=== PATIENT | female | born 1970 | race Caucasian/White ===

== ENCOUNTER 2019-10-30 18:45 | Emergency (ER) | payer OTHER, SELFPAY ==
[2019-10-30 19:19] VITALS: BP 136/75; PULSE 93; RESP 18; TEMP 36.9; O2SAT 98; BMI 28.7
--- NOTE | 2019-10-30 19:30 | W.ED.ABDPA2 ---
HPI - Abdominal Pain General: Chief Complaint: Abdominal Pain Stated Complaint: lower back and abd pain Time Seen by Provider: 10/30/19 19:30 History of Present Illness: HPI narrative: 49-year-old female with mainly right-sided back and flank pain for the past couple of days. She notes that she started some new medications recently, and has not had regular stools in a while. No fever. She has vomited twice though. Multiple belly surgeries. MD elicited complaint: abdominal pain and flank pain Pertinent past history: constipation Onset (ago): day(s) Pain Consistency: constant Location: RUQ and R flank Severity: moderate Quality: aching and fullness Radiation: back Migration to: no migration Exacerbating factors: movement Relieving factors: nothing Associated Symptoms: Denies fever(s), hematochezia, hematuria, hematemesis and melena Review of Systems Const: Denies: fever(s) Eyes: Denies: change in vision or blurry vision ENMT: Denies: swelling of lips/tongue or post nasal drip Card: Denies: chest pain, palpitations, irregular heart rhythm or edema Resp: Denies: dyspnea, productive cough, non-productive cough or wheezing GI: Denies: hematemesis, hematochezia or melena : Denies: hematuria Musc: Reports: back pain; Denies: neck pain, joint redness or joint warmth Skin/Breast: Denies: rash, pruritus or erythema Neuro: Denies: headache(s), dizziness or seizure-like activity Psych: Denies: anxiety PFSH ED PFSH: Social History Smoking and tobacco status: current every day smoker Physical Exam Const: GENERAL APPEARANCE: well developed ORIENTATION/CONSCIOUSNESS: Yes oriented to person, Yes oriented to place and Yes oriented to time HENMT: COMMON NORMALS: normocephalic, external ears normal and Normal external nose present HEAD & SCALP: normocephalic; no scalp tenderness NOSE: Normal external nose present and No nasal discharge present EXTERNAL EAR: Yes external ears normal THROAT: posterior oropharynx normal; no peritonsillar mass Eye: COMMON NORMALS: Equal, round and reactive pupils present, EOMs intact bilaterally and conjunctivae normal EYELID: eyelids normal CONJUNCTIVA: Yes conjunctivae normal PUPIL: Yes Equal, round and reactive pupils present Neck/C-Spine: GENERAL: No tracheal deviation Chest: COMMONS NORMALS: normal inspection of the chest CHEST: No tenderness Resp: COMMON NORMALS: clear to auscultation bilaterally EFFORT & INSPECTION: No tachypneic, No respiratory distress, No retractions, No uses accessory muscles and No tracheal deviation AUSCULTATION: clear to auscultation bilaterally, no rhonchi, no wheezes and lung sounds not diminished Cardio: COMMON NORMALS: regular rate and regular rhythm RATE: regular rate RHYTHM: regular rhythm HEART SOUNDS: no murmurs PERIPHERAL PULSES: radial pulses present GI: INSPECTION: Yes abdominal distension AUSCULTATION: No Hyperactive bowel sounds present and No Hypoactive bowel sounds present PALPATION: Yes Guarding due to palpation present (GI) and No Rigid due to palpation PERCUSSION: no dullness to percussion and no tympanic to percussion : COMMON NORMALS: No no CVA tenderness BLADDER/KIDNEY EXAM: No no CVA tenderness Back/Pelvis: COMMON NORMALS: negative for no CVA tenderness Neuro: SENSORIUM/ORIENTATION: Yes oriented to person, Yes oriented to place and Yes oriented to time Psych: COMMON NORMALS: mental status grossly normal Skin: COMMON NORMALS: no rashes or lesions noted GENERAL SKIN EXAM: no rashes or lesions noted Course Vital Signs: Vital signs: Vital Signs Temperature 98.5 F 10/30/19 19:19 Pulse Rate 82 10/30/19 21:28 Respiratory Rate 16 10/30/19 21:28 Blood Pressure 124/87 10/30/19 21:28 Pulse Oximetry 98 10/30/19 21:28 MDM - Abdominal Pain Lab Data: Attestation: I reviewed the patient's lab results. Lab results narrative: Labs negative. CT shows constipation. Labs: Lab Results 10/30/19 10/30/19 10/30/19 Range/Units 19:47 19:47 20:36 WBC 8.3 (4.0-10.0) 10^3/ uL RBC 4.28 (4.1-5.3) 10^6/u L Hgb 13.7 (11.5-15.3) g/dL Hct 40.5 (37.0-47.0) % MCV 94.6 (81-99) fL MCH 32.0 (28.0-34.0) pg MCHC 33.8 (30.0-36.0) g/dL RDW 12.9 (12.1-15.1) % Plt Count 223 (130-400) 10^3/c mm MPV 10.1 (7.4-10.4) fL Neut % (Auto) 56.4 % Lymph % (Auto) 34.4 % [place] % (Auto) 5.6 % Eos % (Auto) 2.7 % Baso % (Auto) 0.7 % Neut # (Auto) 4.7 (1.8-7.7) 10^3/u L Lymph # (Auto) 2.9 (0.8-4.8) 10^3/u L [place] # (Auto) 0.5 (0.2-0.9) 10^3/u L Eos # (Auto) 0.2 (0.0-0.8) 10^3/u L Baso # (Auto) 0.1 (0.0-0.1) 10^3/u L Nucleated RBC % (a uto) 0 % Nucleated RBCs # 0.0 /100WBC Sodium 140 (136-145) mmol/L Potassium 3.9 (3.5-5.1) mmol/L Chloride 103 (98-107) mmol/L Carbon Dioxide 25 (22-29) mmol/L Anion Gap 15.9 (5-19) BUN 13 (6-20) mg/dL Creatinine 0.6 (0.5-0.9) mg/dL GFR Calculation 107.2 (90-130) mL/min Glucose 101 (65-115) mg/dL Calculated Osmolal ity 286 (285-295) mOsm/k g Calcium 9.9 (8.5-10.5) mg/dL Total Bilirubin 0.2 (0.15-1.2) mg/dL AST 18 (0-32) U/L ALT 17 (0-33) U/L Alkaline Phosphata se 85 (35-105) IU/L C-Reactive Protein 3.4 (0.0-4.9) mg/L Total Protein 7.0 (6.6-8.7) g/dL Albumin 4.3 (3.5-5.2) g/dL Globulin 2.7 (1.3-4.6) g/dL Lipase 27 (13-60) U/L Urine Color Yellow (Yellow) Urine Appearance Sl hazy (CLEAR) Urine pH 5 (5-7) Ur Specific Gravit y 1.020 (1.005-1.030) Urine Protein Neg (Negative) Urine Glucose (UA) Norm (Normal) Urine Ketones Negative (Negative) Urine Blood Neg (Negative) Urine Nitrate Negative (Negative) Urine Bilirubin 1+ H (NEGATIVE) Urine Urobilinogen 1 H (Negative) mg/dL Ur Leukocyte Melvina ase Negative (Negative) Urine RBC Rare (0-2) /hpf Urine WBC 5-10 H (0-5) /hpf Ur Squamous Epith Cells 5-10 H (0-5) Urine Bacteria Trace (NONE) Urine Mucus 2+ Discharge Plan Discharge Patient Disposition: Home, Self-Care Clinical Impression: Constipation Qualifiers: Constipation type: unspecified constipation type Qualified Code(s): K59.00 - Constipation, unspecified Condition: Stable Prescriptions: No Action lorazepam 1 mg tablet RF: 0 Wellbutrin XL RF: 0 Discharge Orders: Discharge Order (Routine); Ordered 10/30/19 Ordered By: Cyril Fang Discharge Diet: Advance as tolerated Discharge Activity: Resume usual activity Patient Instructions: Constipation (ED) Discharge Date/Time: 10/30/19 21:33 Coding Level of Care Code ED Software Team Leader for Chg Fwd Exam Comprehensive
--- NOTE | 2019-10-30 19:43 | CTR_ITS ---
PROCEDURE INFORMATION: Exam: CT Abdomen And Pelvis With Contrast Exam date and time: 10/30/2019 7:56 PM Age: 49 years old Clinical indication: Abdominal pain; Flank; Lower; Prior surgery; Surgery date: 6+ months; Surgery type: [place]; Patient HX: C/O constipation and back pain r>l x 1 week; Additional info: R abd pain TECHNIQUE: Imaging protocol: Computed tomography of the abdomen and pelvis with intravenous contrast. Radiation optimization: All CT scans at this facility use at least one of these dose optimization techniques: automated exposure control; mA and/or kV adjustment per patient size (includes targeted exams where dose is matched to clinical indication); or iterative reconstruction. Contrast material: OMNI 300; Contrast volume: 95 ml; Contrast route: 20G COMPARISON: No relevant prior studies available. FINDINGS: Liver, spleen, pancreas, kidneys, and adrenal glands appear unremarkable. Urinary bladder is nearly collapsed. Appendix appears grossly unremarkable. Bowel loops do not appear significantly dilated. A moderate amount of stool is demonstrated. No large amount of free fluid demonstrated. Abdominal aorta does not appear dilated. Visualized lung bases demonstrate no significant opacification. CT/CT abdomen pelvis w con* [id number] IMPRESSION: No acute process is demonstrated. A moderate amount of stool is demonstrated. Total DLP: 698.39 mGy-cm Radiation Dose CTDIVOL = (mGy): DLP = 698.39 (mGy-cm)
[2019-10-30 19:56] LABS: Basophils # 0.1 10^3/uL (0.0-0.1); Basophils % 0.7 %; Eosinophils # 0.2 10^3/uL (0.0-0.8); Eosinophils % 2.7 %; Hematocrit 40.5 % (37.0-47.0); Hemoglobin 13.7 g/dL (11.5-15.3); Lymphocytes # 2.9 10^3/uL (0.8-4.8); Lymphocytes % 34.4 %; Mean Corpuscular HGB Conc 33.8 g/dL (30.0-36.0); Mean Corpuscular Volume 94.6 fL (81-99); Mean Platelet Volume 10.1 fL (7.4-10.4); Monocytes # 0.5 10^3/uL (0.2-0.9); Monocytes % 5.6 %; Neutrophils # 4.7 10^3/uL (1.8-7.7); Neutrophils % 56.4 %; Nucleated Red Blood Cells % 0 %; Platelet Count 223 10^3/cmm (130-400); Red Blood Count 4.28 10^6/uL (4.1-5.3); Red Cell Distribution Width 12.9 % (12.1-15.1); White Blood Count 8.3 10^3/uL (4.0-10.0)
[2019-10-30 20:14] VITALS: RESP 14; O2SAT 98
[2019-10-30 20:14] LABS: Alanine Aminotransferase 17 U/L (0-33); Albumin Level 4.3 g/dL (3.5-5.2); Alkaline Phosphatase 85 IU/L (35-105); Anion Gap 15.9 (5-19); Aspartate Amino Transferase 18 U/L (0-32); Blood Urea Nitrogen 13 mg/dL (6-20); C Reactive Protein 3.4 mg/L (0.0-4.9); Calcium 9.9 mg/dL (8.5-10.5); Carbon Dioxide 25 mmol/L (22-29); Chloride 103 mmol/L (98-107); Globulin 2.7 g/dL (1.3-4.6); Glomerular Filtration Rate 107.2 mL/min (90-130); Glucose 101 mg/dL (65-115); Lipase 27 U/L (13-60); Osmolality Calculated 286 mOsm/kg (285-295); Potassium 3.9 mmol/L (3.5-5.1); Sodium 140 mmol/L (136-145); Total Bilirubin 0.2 mg/dL (0.15-1.2)
[2019-10-30] MEDS: ketorolac 30 mg/mL INJ IVP (20:14)
[2019-10-30] MEDS: ondansetron 2 mg/ML SDV 2 mL 4 MG IVP (20:14)
[2019-10-30] MEDS: morphine 4 mg/mL SDV 1 mL IVP ×2 (20:14→21:13)
[2019-10-30] MEDS: sodium chloride 0.9% 1,000 ML 999 ML IV (20:20)
[2019-10-30 20:22] VITALS: BP 124/80; PULSE 107; RESP 16; O2SAT 98
--- NOTE | 2019-10-30 20:37 | PC.NURSE ---
patient to CT
[2019-10-30] MEDS: iohexol 300 mg/mL 100 mL Btl IV (20:39)
[2019-10-30 20:58] LABS: Urine Color Yellow (Yellow)
[2019-10-30 20:59] LABS: Add Urine Microscopic? YES; Bilirubin Urine 1+ (NEGATIVE); Blood Urine Neg (Negative); Glucose Urine UA Norm (Normal); Ketones Urine Negative (Negative); Leukocyte Esterase Urine Negative (Negative); Nitrate Urine Negative (Negative); Protein Urine Neg (Negative); Urine Appearance SL Hazy (CLEAR); Urobilinogen Urine 1 mg/dL (Negative); pH Urine 5 (5-7)
[2019-10-30 21:02] LABS: RBC Urine RARE /hpf (0-2)
[2019-10-30 21:03] LABS: Add Urine Culture? No; Bacteria Urine TRACE; Mucus Urine 2+
[2019-10-30 21:13] VITALS: RESP 15; O2SAT 9
[2019-10-30 21:14] VITALS: BP 133/86; PULSE 86; RESP 15; O2SAT 99
[2019-10-30 21:28] VITALS: BP 124/87; PULSE 82; RESP 16; O2SAT 98
[2019-10-30] MEDS: magnesium citrate Btl 296 mL PO (21:31)
== END 2019-10-30 21:33 | disposition home or self-care (01) ==
PROVIDERS: Emergency Provider Emergency Medicine
DX: K59.00 Constipation, unspecified (principal); F17.210 Nicotine dependence, cigarettes, uncomplicated
CPT/HCPCS: 12345; 74177; 80053; 81001; 83690; 85025; 86140; 96361; 96374; 96375; 96376; 99283; A9270; J1885; J2270; J2405; J7030; Q9967

== ENCOUNTER 2020-07-02 13:46 | Emergency (ER) | payer MEDICAID, SELFPAY ==
[2020-07-02 13:57] VITALS: BP 146/88; PULSE 79; RESP 14; TEMP 36.8; O2SAT 98; BMI 29.2
--- NOTE | 2020-07-02 14:21 | CTR_ITS ---
PROCEDURE INFORMATION: Exam: CT Abdomen And Pelvis With Contrast Exam date and time: 07/02/2020 2:28 PM Age: 50 years old Clinical indication: Abdominal pain; Prior surgery; Surgery date: 6+ months; Surgery type: Hyst; Patient HX: C/O epigastric pain and nausea TECHNIQUE: Imaging protocol: Computed tomography of the abdomen and pelvis with intravenous contrast. Radiation optimization: All CT scans at this facility use at least one of these dose optimization techniques: automated exposure control; mA and/or kV adjustment per patient size (includes targeted exams where dose is matched to clinical indication); or iterative reconstruction. Contrast material: OMNI 300; Contrast volume: 95 ml; Contrast route: INTRAVENOUS (IV); COMPARISON: CT abdomen pelvis w con* [id number] 10/30/2019 8:29 PM RADIATION DOSE METRICS: Total DLP (mGy-cm): 634.54 FINDINGS: Liver: Normal. No mass. Gallbladder and bile ducts: Normal. No calcified stones. No ductal dilation. Pancreas: Normal. No ductal dilation. Spleen: Small incidental splenule. Adrenal glands: Normal. No mass. Kidneys and ureters: Normal. No hydronephrosis. Stomach and bowel: Unremarkable. No obstruction. No mucosal thickening. Appendix: A normal appendix is identified. Intraperitoneal space: Unremarkable. No free air. No significant fluid collection. Vasculature: Unremarkable. No abdominal aortic aneurysm. Lymph nodes: Unremarkable. No enlarged lymph nodes. Urinary bladder: Unremarkable as visualized. Reproductive: The uterus is not visualized, consistent with hysterectomy. Bones/joints: Unremarkable. No acute fracture. Soft tissues: Unremarkable. Other findings: There is mucosal thickening at the gastroesophageal junction. CT/CT abdomen pelvis w con* [id number] IMPRESSION: There is mucosal thickening at the gastroesophageal junction consistent with nonspecific esophagitis/gastritis. Follow-up to exclude neoplasm if clinically warranted. Radiation Dose CTDIVOL = (mGy): DLP = 634.54 (mGy-cm)
[2020-07-02 14:27] VITALS: RESP 18
[2020-07-02 14:32] LABS: Add Urine Microscopic? NO
[2020-07-02] MEDS: ondansetron 2 mg/ML SDV 2 mL 4 MG IVP (14:33)
[2020-07-02] MEDS: lidocaine 2% viscous 15 ML, aluminum-mag hydrox-simethicon 30 ML, sucralfate oral liq 1 GM PO (14:33)
[2020-07-02 14:43] LABS: Basophils % 0.6 %; Eosinophils # 0.1 10^3/uL (0.0-0.8); Eosinophils % 1.5 %; Hematocrit 44.2 % (37.0-47.0); Hemoglobin 15.2 g/dL (11.5-15.3); Lymphocytes # 2.7 10^3/uL (0.8-4.8); Lymphocytes % 39.7 %; Mean Corpuscular HGB Conc 34.4 g/dL (30.0-36.0); Mean Corpuscular Hemoglobin 32.5 pg (28.0-34.0); Mean Corpuscular Volume 94.4 fL (81-99); Mean Platelet Volume 10.4 fL (7.4-10.4); Monocytes # 0.3 10^3/uL (0.2-0.9); Monocytes % 5.1 %; Neutrophils # 3.56 10^3/uL (1.8-7.7); Nucleated Red Blood Cells % 0 %; Platelet Count 271 10^3/cmm (130-400); Red Blood Count 4.68 10^6/uL (4.1-5.3); Red Cell Distribution Width 12.5 % (12.1-15.1); White Blood Count 6.7 10^3/uL (4.0-10.0)
[2020-07-02 14:47] LABS: Bilirubin Urine Neg (Negative); Blood Urine Neg (Negative); Glucose Urine UA Norm (Normal); Ketones Urine Negative (Negative); Leukocyte Esterase Urine Negative (Negative); Nitrate Urine Negative (Negative); Protein Urine Neg (Negative); Urine Appearance Clear (CLEAR); Urine Color Straw (Yellow); Urobilinogen Urine Norm (Negative); pH Urine 7 (5-7)
[2020-07-02 14:48] LABS: HCG Qualitative Urine. Negative (Negative)
[2020-07-02] MEDS: iohexol 300 mg/mL 100 mL Btl IV (14:48)
[2020-07-02 15:02] LABS: Alanine Aminotransferase 14 U/L (0-33); Albumin Level 4.6 g/dL (3.5-5.2); Alkaline Phosphatase 86 IU/L (35-105); Anion Gap 13.6 (5-19); Aspartate Amino Transferase 17 U/L (0-32); Blood Urea Nitrogen 10 mg/dL (6-20); C Reactive Protein 2.8 mg/L (0.0-4.9); Calcium 9.8 mg/dL (8.5-10.5); Carbon Dioxide 24 mmol/L (22-29); Chloride 104 mmol/L (98-107); Glomerular Filtration Rate 89.3 mL/min (90-130); Glucose 84 mg/dL (65-115); Lipase 35 U/L (13-60); Osmolality Calculated 284 mOsm/kg (285-295); Potassium 3.6 mmol/L (3.5-5.1); Sodium 138 mmol/L (136-145); Total Bilirubin 0.2 mg/dL (0.15-1.2)
--- NOTE | 2020-07-02 15:14 | ED_ITS ---
HPI - Abdominal Pain General: Chief Complaint: Abdominal Pain Stated Complaint: SEVERE ABDOMINAL PAIN, SENT FROM URGENT CARE Time Seen by Provider: 07/02/20 14:03 Source: patient Mode of arrival: ambulatory Limitations: no limitations History of Present Illness: HPI narrative: Patient with epigastric pain for about 3 weeks now. Symptoms have been progressively worsening. She has been taking Pepto-Bismol every day but with no much improvement she has nausea but no vomiting today. No diarrhea. She does have a history of acid reflux. Because her pain was worsening she went to the urgent care today and they advised that she come to the emergency department to be evaluated. MD elicited complaint: abdominal pain Pertinent past history: none Onset (ago): week(s) (3) Pain Consistency: constant Location: Epigastric Severity: severe Quality: stabbing Radiation: none Migration to: no migration Exacerbating factors: eating Relieving factors: nothing Associated Symptoms: Reports heartburn and nausea; Denies anorexia, belching, bloating, change in bowel habits, change in stool character, chills, coffee ground emesis, constipation, GI cramping, diarrhea, dyspepsia, dysuria, excessive flatus, fever(s), hematochezia, hematuria, hematemesis, fecal incontinence, loose stools, melena, poor appetite, syncope and vomiting Review of Systems General: Reports: 10 or more systems reviewed and unremarkable except in HPI and below Const: Denies: fever(s) or chills Eyes: Denies: change in vision or blurry vision ENMT: Denies: throat pain, enlarged tonsils, odynophagia, hoarseness, mouth pain or swelling of lips/tongue Card: Denies: syncope Resp: Denies: dyspnea, productive cough or non-productive cough GI: Reports: nausea and heartburn; Denies: vomiting, hematemesis, coffee ground emesis, diarrhea, constipation, bloating, GI cramping, belching, excessive flatus, fecal incontinence, change in bowel habits, change in stool character, hematochezia or melena : Denies: dysuria or hematuria Musc: Denies: neck pain, back pain or extremity swelling Skin/Breast: Denies: rash, pruritus or erythema Neuro: Denies: headache(s), numbness in extremities or weakness in extremities Endo: Denies: polyuria, polydipsia or tired all the time [facility] ED PFSH: Social History Smoking and tobacco status: current every day smoker Alcohol intake: never Physical Exam Const: COMMON NORMALS: no acute distress, average body habitus, patient oriented x3, no limitations, healthy appearing, alert and well nourished HENMT: COMMON NORMALS: normocephalic, atraumatic and moist oral mucous membranes HEAD & SCALP: normocephalic and atraumatic Neck/C-Spine: COMMON NORMALS: no meningeal signs and no JVD Chest: COMMONS NORMALS: normal inspection of the chest and normal palpation of entire chest wall Resp: COMMON NORMALS: normal respiratory effort, No retractions, No use of accessory muscles, clear to auscultation bilaterally and percussion normal AUSCULTATION: clear to auscultation bilaterally PERCUSSION: percussion normal Cardio: COMMON NORMALS: no JVD, regular rate, regular rhythm, S1 normal heart sound present, S2 normal heart sound present, No gallops present (Cardio), No clicks present (Cardio), No murmurs present (Cardio), No rub (Cardio) and Peripheral pulses 2+ throughout RATE: regular rate RHYTHM: regular rhythm HEART SOUNDS: S1 normal heart sound present and S2 normal heart sound present PERIPHERAL PULSES: Peripheral pulses 2+ throughout GI: COMMON NORMALS: Normal to inspection, nondistended, normoactive bowel sounds present, Soft to palpation, No hepatosplenomegaly present, no masses and no bruits PALPATION: Yes Soft to palpation, Yes Tenderness to palpation present (GI) Details: other (epigastric), Yes Guarding due to palpation present (GI) and Yes No hepatosplenomegaly present Extremity: COMMON NORMALS: normal to inspection, full ROM, capillary refill normal, no calf tenderness and no pedal edema Neuro: COMMON NORMALS: patient oriented x3 SENSORIUM/ORIENTATION: Yes alert MENINGEAL SIGNS: Yes no meningeal signs Skin: COMMON NORMALS: no rashes or lesions noted, no wounds, turgor normal, no jaundice, no petechiae and no mottling GENERAL SKIN EXAM: no rashes or le sions noted and turgor normal Course Reevaluation(s): Reevaluation #1: Discussed her lab and imaging findings with her. Labs unremarkable, her CT scan shows inflammatory changes at the GEJ which is likely due to esophagitis. We will discharge her home with a prescription of a PPI and Carafate and she will be scheduled for an outpatient EGD. She is advised on the proper diet and is advised to be compliant with her medication. She voiced understanding and is in agreement with the plan. Time: 16:27 Vital Signs: Vital signs: Vital Signs Temperature 98.2 F 07/02/20 13:57 Pulse Rate 79 07/02/20 13:57 Respiratory Rate 18 07/02/20 16:44 Blood Pressure 146/88 07/02/20 13:57 Pulse Oximetry 98 07/02/20 13:57 MDM - Abdominal Pain MDM Narrative: Medical decision making narrative: 50-year-old female patient who presents to the emergency department with abdominal pain. Evaluation in the ED is consistent with esophagitis/gastritis. She will be discharged home with a prescription for a PPI and Carafate and she will be scheduled for an outpatient endoscopy. There do not appear to be any complications. Medical Records: Attestation: I reviewed the patient's medical records. Lab Data: Attestation: I reviewed the patient's lab results. Labs: Lab Results 07/02/20 07/02/20 07/02/20 Range/Units 14:20 14:20 14:20 WBC 6.7 (4.0-10.0) 10^3/ uL RBC 4.68 (4.1-5.3) 10^6/u L Hgb 15.2 (11.5-15.3) g/dL Hct 44.2 (37.0-47.0) % MCV 94.4 (81-99) fL MCH 32.5 (28.0-34.0) pg MCHC 34.4 (30.0-36.0) g/dL RDW 12.5 (12.1-15.1) % Plt Count 271 (130-400) 10^3/c mm MPV 10.4 (7.4-10.4) fL Neut % (Auto) 53.0 % Lymph % (Auto) 39.7 % [place] % (Auto) 5.1 % Eos % (Auto) 1.5 % Baso % (Auto) 0.6 % Neut # (Auto) 3.56 (1.8-7.7) 10^3/u L Lymph # (Auto) 2.7 (0.8-4.8) 10^3/u L [place] # (Auto) 0.3 (0.2-0.9) 10^3/u L Eos # (Auto) 0.1 (0.0-0.8) 10^3/u L Baso # (Auto) 0.0 (0.0-0.1) 10^3/u L Nucleated RBC % (a uto) 0 % Nucleated RBCs # 0.0 /100WBC Sodium 138 (136-145) mmol/L Potassium 3.6 (3.5-5.1) mmol/L Chloride 104 (98-107) mmol/L Carbon Dioxide 24 (22-29) mmol/L Anion Gap 13.6 (5-19) BUN 10 (6-20) mg/dL Creatinine 0.7 (0.5-0.9) mg/dL GFR Calculation 89.3 L (90-130) mL/min Glucose 84 (65-115) mg/dL Calculated Osmolal ity 284 L (285-295) mOsm/k g Calcium 9.8 (8.5-10.5) mg/dL Total Bilirubin 0.2 (0.15-1.2) mg/dL AST 17 (0-32) U/L ALT 14 (0-33) U/L Alkaline Phosphata se 86 (35-105) IU/L C-Reactive Protein 2.8 (0.0-4.9) mg/L Total Protein 9.8 H (6.6-8.7) g/dL Albumin 4.6 (3.5-5.2) g/dL Globulin 5.2 H (1.3-4.6) g/dL Lipase 35 (13-60) U/L HCG, Qual Negative (Negative) Urine Color (Yellow) Urine Appearance (CLEAR) Urine pH (5-7) Ur Specific Gravit y (1.005-1.030) Urine Protein (Negative) Urine Glucose (UA) (Normal) Urine Ketones (Negative) Urine Blood (Negative) Urine Nitrate (Negative) Urine Bilirubin (Negative) Urine Urobilinogen (Negative) mg/dL Ur Leukocyte Melvina ase (Negative) 07/02/20 Range/Units 14:20 WBC (4.0-10.0) 10^3/ uL RBC (4.1-5.3) 10^6/u L Hgb (11.5-15.3) g/dL Hct (37.0-47.0) % MCV (81-99) fL MCH (28.0-34.0) pg MCHC (30.0-36.0) g/dL RDW (12.1-15.1) % Plt Count (130-400) 10^3/c mm MPV (7.4-10.4) fL Neut % (Auto) % Lymph % (Auto) % [place] % (Auto) % Eos % (Auto) % Baso % (Auto) % Neut # (Auto) (1.8-7.7) 10^3/u L Lymph # (Auto) (0.8-4.8) 10^3/u L [place] # (Auto) (0.2-0.9) 10^3/u L Eos # (Auto) (0.0-0.8) 10^3/u L Baso # (Auto) (0.0-0.1) 10^3/u L Nucleated RBC % (a uto) % Nucleated RBCs # /100WBC Sodium (136-145) mmol/L Potassium (3.5-5.1) mmol/L Chloride (98-107) mmol/L Carbon Dioxide (22-29) mmol/L Anion Gap (5-19) BUN (6-20) mg/dL Creatinine (0.5-0.9) mg/dL GFR Calculation (90-130) mL/min Glucose (65-115) mg/dL Calculated Osmolal ity (285-295) mOsm/k g Calcium (8.5-10.5) mg/dL Total Bilirubin (0.15-1.2) mg/dL AST (0-32) U/L ALT (0-33) U/L Alkaline Phosphata se (35-105) IU/L C-Reactive Protein (0.0-4.9) mg/L Total Protein (6.6-8.7) g/dL Albumin (3.5-5.2) g/dL Globulin (1.3-4.6) g/dL Lipase (13-60) U/L HCG, Qual (Negative) Urine Color Straw (Yellow) Urine Appearance Clear (CLEAR) Urine pH 7 (5-7) Ur Specific Gravit y 1.010 (1.005-1.030) Urine Protein Neg (Negative) Urine Glucose (UA) Norm (Normal) Urine Ketones Negative (Negative) Urine Blood Neg (Negative) Urine Nitrate Negative (Negative) Urine Bilirubin Neg (Negative) Urine Urobilinogen Norm (Negative) mg/dL Ur Leukocyte Melvina ase Negative (Negative) Imaging Data ^: CT Abd/Pel: Attestation: I personally reviewed and interpreted this imaging study as follows: Radiologist's impression: [facility] [address] [address] Scan Report Signed Patient: Espinoza Paige #: [id number] : 1970Acct#:[id number] Age/Sex: 50 / FADM Date: 07/02/20 Loc: ERRoom/Bed: Attending Dr: Ordering Provider/Ordering MD: Ashley Jarrell MD, [place] Date of Service: 07/02/20 Procedure(s): CT abdomen pelvis w con* [id number] Accession Number(s): [id number] Report Number: [id number] PROCEDURE INFORMATION: Exam: CT Abdomen And Pelvis With Contrast Exam date and time: 07/02/2020 2:28 PM Age: 50 years old Clinical indication: Abdominal pain; Prior surgery; Surgery date: 6+ months; Surgery type: Hyst; Patient HX: C/O epigastric pain and nausea TECHNIQUE: Imaging protocol: Computed tomography of the abdomen and pelvis with intravenous contrast. Radiation optimization: All CT scans at this facility use at least one of these dose optimization techniques: automated exposure control; mA and/or kV adjustment per patient size (includes targeted exams where dose is matched to clinical indication); or iterative reconstruction. Contrast material: OMNI 300; Contrast volume: 95 ml; Contrast route: INTRAVENOUS (IV); COMPARISON: CT abdomen pelvis w con* [id number] 10/30/2019 8:29 PM RADIATION DOSE METRICS: Total DLP (mGy-cm): 634.54 FINDINGS: Liver: Normal. No mass. Gallbladder and bile ducts: Normal. No calcified stones. No ductal dilation. Pancreas: Normal. No ductal dilation. Spleen: Small incidental splenule. Adrenal glands: Normal. No mass. Kidneys and ureters: Normal. No hydronephrosis. Stomach and bowel: Unremarkable. No obstruction. No mucosal thickening. Appendix: A normal appendix is identified. Intraperitoneal space: Unremarkable. No free air. No significant fluid collection. Vasculature: Unremarkable. No abdominal aortic aneurysm. Lymph nodes: Unremarkable. No enlarged lymph nodes. Urinary bladder: Unremarkable as visualized. Reproductive: The uterus is not visualized, consistent with hysterectomy. Bones/joints: Unremarkable. No acute fracture. Soft tissues: Unremarkable. Other findings: There is mucosal thickening at the gastroesophageal junction. CT/CT abdomen pelvis w con* [id number] IMPRESSION: There is mucosal thickening at the gastroesophageal junction consistent with nonspecific esophagitis/gastritis. Follow-up to exclude neoplasm if clinically warranted. Radiation Dose CTDIVOL = (mGy): DLP = 634.54 (mGy-cm) Dictated By:Maria De Jesus Giron MD Signed By:Maria De Jesus Gironigned Date/Time:07/02/20 4538 Discharge Plan Discharge Patient Disposition: Home Clinical Impression: Esophagitis Condition: Stable Prescriptions: New Protonix 40 mg tablet,delayed release (DR/EC) 40 mg PO BID 14 Days Qty: 28 RF: 0 Carafate 100 mg/mL suspension 1 g PO TID Qty: 420 RF: 0 Continued aripiprazole [Abilify] 5 mg tablet 5 mg PO DAILY@20 RF: 0 topiramate [Topamax] 25 mg tablet 25 mg PO BID RF: 0 estradiol 0.1 mg/24 hr patch semiweekly See Rx Instructions .ROUTE .COMPLEX RF: 0 clonazepam 1 mg tablet 1 mg PO DAILY PRN (Reason: Anxiety) RF: 0 hydroxyzine pamoate 50 mg capsule 50 mg PO BID PRN (Reason: unknown) RF: 0 albuterol sulfate 90 mcg/actuation HFA aerosol inhaler 2 puff INHALATION Q6H PRN (Reason: Shortness Of Breath) RF: 0 bupropion HCl 300 mg tablet extended release 24 hr 300 mg PO QAM RF: 0 budesonide-formoterol 160-4.5 mcg/actuation HFA aerosol inhaler 2 puff INHALATION BID PRN (Reason: unknown) RF: 0 Discharge Orders: Discharge ED (Routine); Ordered 07/02/20 Ordered By: Adegoke I Chrystal Discharge Diet: As Directed Discharge Activity: Increase activity as tolerated Patient Instructions: Diet for Ulcers and Gastritis (ED), Corrosive Esophagitis (ED) Activity Restrictions/Additional Instructions: Return for any new or worsening symptoms. Follow-up with your primary care provider within 3 days. You will be contacted to schedule an appointment for an upper gastrointestinal endoscopy. Follow the diet as prescribed. Take the medications as prescribed. Coding Level of Care Code ED [employer] Supervisor for Chg Fwd Exam Comprehensive
[2020-07-02 15:27] VITALS: RESP 18
[2020-07-02 16:00] VITALS: RESP 18
[2020-07-02] MEDS: famotidine 20 mg/2 mL INJ 40 MG IVP (16:19)
[2020-07-02 16:44] VITALS: RESP 18
--- NOTE | 2020-07-03 15:38 | DCPLANNER ---
data center manager had message to schedule an outpatient EGD for patient. data center manager faxed order to centralized scheduling, will call for appointment information.
[2020-07-03 20:03] LABS: Globulin 2.9 g/dL (1.3-4.6); Total Protein 7.5 g/dL (6.6-8.7)
--- NOTE | 2020-07-07 07:52 | DCPLANNER ---
Patient has a follow up appointment scheduled for , July 13, [address] at 2:[address] Arevalo. Clinic will call patient with appointment information.
--- NOTE | 2020-08-30 11:30 | DCPLANNER ---
Patient had a follow up appointment scheduled for 07.13.[address] Arevalo at general surgery - patient did attend appointment.
== END 2020-07-02 16:45 | disposition home or self-care (01) ==
PROVIDERS: Nurse Practitioner Family; Emergency Provider Family Medicine
DX: K20.90 Esophagitis, unspecified without bleeding (principal); F17.200 Nicotine dependence, unspecified, uncomplicated
CPT/HCPCS: 12345; 74177; 80053; 81003; 81025; 83690; 85025; 86140; 96374; 96375; 99283; J2405; J3490; Q9967

== ENCOUNTER → 2020-07-17 10:03 | Outpatient (BNVA) | payer MEDICAID, SELFPAY | PROVIDERS: PCP Nurse Practitioner Family; Visit Provider Surgery | DX: Z01.812 Encounter for preprocedural laboratory examination (principal); R10.9 Unspecified abdominal pain; Z12.11 Encounter for screening for malignant neoplasm of colon | CPT/HCPCS: 87635 ==

== ENCOUNTER 2020-07-21 06:05 | Day surgery (SDC) | payer MEDICAID, SELFPAY ==
[2020-07-18 14:41] VITALS: BMI 28.1
[2020-07-19 10:34] VITALS: BMI 28.1
--- NOTE | 2020-07-21 06:15 | W.PM.OPSUD ---
Surgery/Procedure H&P Update DATE OF PROCEDURE: July 21, 2020 DATE H&P PERFORMED: 07/13/20 H&P UPDATE INFORMATION: I have reviewed H&P completed within last 30 days, I have examined patient prior to procedure and No changes to prior documentation PREOP DIAGNOSIS: Epigastric pain/screening colonoscopy PRIMARY INDICATION FOR PROCEDURE: The same PLANNED PROCEDURE: Operation Date: 07/21/20 07:00 Proposed Procedures p EGD/Colon [id number] R10.9 Z12.11(Not Applicable) - Ricky Arevalo MD s Colonoscopy(Not Applicable) - Ricky Arevalo MD
[2020-07-21 06:28] VITALS: BP 102/80; PULSE 97; RESP 16; TEMP 36.5; O2SAT 98
[2020-07-21] MEDS: sodium chloride 0.9% 1,000 ML 30 ML IV (06:40)
--- NOTE | 2020-07-21 07:13 | ANES.PREANE2 ---
Pre-Anesthetic Assessment Pre-Anesthetic Assessment: Height/Weight: Height 1.57 m Weight 69.853 kg Temp Pulse Resp BP Pulse Ox 97.7 F 97 16 102/80 98 07/21/20 06:28 07/21/20 06:28 07/21/20 06:28 07/21/20 06:28 07/21/20 06:28 Preop Diagnosis: Epigastric pain and screening colonoscopy Proposed Procedure: Operation Date: 07/21/20 07:00 Proposed Procedures p EGD/Colon [id number] R10.9 Z12.11(Not Applicable) - Ricky Arevalo MD s Colonoscopy(Not Applicable) - Ricky Arevalo MD Was Beta Nicolás taken within 24 hours: N/A Last intake: Intake Last Liquid Date 07/20/20 Last Liquid Time 21:00 Last Solid Date 07/20/20 Last Solid Time 05:00 Social: Social History: Tobacco and No alcohol Exam: Pre-Anes Outpt Exam: alert, oriented x 3 and regular rate & rhythm Airway: Submandibular: WNL Cervical ROM: WNL MP: 2 Dentition: False Pulmonary: Pulmonary: COPD GI: GI: GERD Neuropsych: Neuropsych: Anxiety Anesthetic Plan: ASA status: 3 Anesthesia: MAC Risk of > 500 ml blood loss (7ml/kg in children): No PFSH Anesthesia PFSH: Medical History (Updated 07/14/20 @ 16:43 by Ricky Arevalo MD) Screen for colon cancer Social History Smoking and tobacco status: current every day smoker Alcohol intake: never Data Anesthesia Cardiac Studies: No Data to Display
[2020-07-21 07:19] VITALS: BP 150/106; PULSE 75; RESP 16; TEMP 36.3; O2SAT 95
[2020-07-21 07:38] VITALS: PULSE 75; RESP 18; O2SAT 98
[2020-07-21 07:53] VITALS: RESP 20
[2020-07-21] MEDS: meperidine 50 mg/mL INJ 25 MG IVP (07:53)
[2020-07-21 08:02] VITALS: BP 109/86; PULSE 70; RESP 16; O2SAT 98
[2020-07-21 08:13] VITALS: BP 109/69; PULSE 70; RESP 16; O2SAT 100
--- NOTE | 2020-07-21 08:21 | ANE.PACU2 ---
Inpatient post-anesthesia follow up: Airway intact: Yes Vital signs: Temperature 97.3 F Pulse Rate 70 Respiratory Rate 16 Blood Pressure 109/69 Pulse Oximetry 100 Oxygen Delivery Me thod Room Air Oxygen Flow Rate Fraction of Inspir ed Oxygen Hydration adequate: Yes Nausea and vomiting: No Pain level: 3 Mental status: Baseline
[2020-07-24 09:15] LABS: H. Pylori / CLO Test Negative
== END 2020-07-21 08:33 | disposition home or self-care (01) ==
PROVIDERS: PCP Nurse Practitioner Family; Visit Provider Surgery
PROC: 0DJD8ZZ Inspection of Lower Intestinal Tract, Via Natural or Artificial Opening Endoscopic (ICD-10-PCS; CPT 45378; 2020-07-21 07:00)
PROC: 0DJ08ZZ Inspection of Upper Intestinal Tract, Via Natural or Artificial Opening Endoscopic (ICD-10-PCS; CPT 43235; 2020-07-21 07:00)
DX: Z12.11 Encounter for screening for malignant neoplasm of colon (principal); R10.13 Epigastric pain; D12.8 Benign neoplasm of rectum; K21.00 Gastro-esophageal reflux disease with esophagitis, without bleeding; K29.70 Gastritis, unspecified, without bleeding; J44.9 Chronic obstructive pulmonary disease, unspecified; F41.9 Anxiety disorder, unspecified; F17.210 Nicotine dependence, cigarettes, uncomplicated
CPT/HCPCS: 43239; 45385; 87077; J2175; J2704; J3490; J7030

== ENCOUNTER 2020-07-22 11:42 | Emergency (ER) | payer MEDICAID, SELFPAY ==
[2020-07-22] VITALS (8 sets, daily range): BP systolic 107–151; BP diastolic 68–101; PULSE 78–90; RESP 18–20; TEMP 36.7–36.8; O2SAT 96–100
--- NOTE | 2020-07-22 12:06 | CTR_ITS ---
PROCEDURE INFORMATION: Exam: CT Abdomen And Pelvis With Contrast Exam date and time: 07/22/2020 12:24 PM Age: 50 years old Clinical indication: Abdominal pain; Additional info: Abd pain. Egd/colonoscopy yesterday TECHNIQUE: Imaging protocol: Computed tomography of the abdomen and pelvis with contrast. Radiation optimization: All CT scans at this facility use at least one of these dose optimization techniques: automated exposure control; mA and/or kV adjustment per patient size (includes targeted exams where dose is matched to clinical indication); or iterative reconstruction. Contrast material: OMNI 300; Contrast volume: 95 ml; Contrast route: INTRAVENOUS (IV); COMPARISON: CT abdomen pelvis w con* [id number] 07/02/2020 2:39 PM RADIATION DOSE METRICS: Total DLP (mGy-cm): 624.7 FINDINGS: Liver: Normal. No mass. Gallbladder and bile ducts: The gallbladder is contracted. No gallstones are seen. The common bile duct is dilated to a diameter of about 9 mm but this has not changed since previous examinations. Pancreas: Normal. No ductal dilation. Spleen: Normal. No splenomegaly. Adrenal glands: Normal. No mass. Kidneys and ureters: Normal. No hydronephrosis. Stomach and bowel: Unremarkable. No obstruction. No mucosal thickening. Appendix: The appendix is seen and is normal. Intraperitoneal space: Unremarkable. No free air. No significant fluid collection. Vasculature: Unremarkable. No abdominal aortic aneurysm. Lymph nodes: Unremarkable. No enlarged lymph nodes. Urinary bladder: Unremarkable as visualized. Reproductive: Unremarkable as visualized. Bones/joints: Unremarkable. No acute fracture. Soft tissues: Unremarkable. CT/CT abdomen pelvis w con* [id number] IMPRESSION: 1. No acute inflammatory processes are seen in the abdomen and pelvis. 2. The gallbladder is contracted but no stones are seen. 3. Stable mild prominence of the extrahepatic bile duct measuring 9 mm in diameter. There are no obvious intraductal stones. Radiation Dose CTDIVOL = (mGy): DLP = 624.7 (mGy-cm)
[2020-07-22 12:39] LABS: Basophils % 0.6 %; Eosinophils # 0.1 10^3/uL (0.0-0.8); Eosinophils % 1.7 %; Hematocrit 44.3 % (37.0-47.0); Hemoglobin 15.4 g/dL (11.5-15.3); Lymphocytes # 2.3 10^3/uL (0.8-4.8); Lymphocytes % 36.3 %; Mean Corpuscular HGB Conc 34.8 g/dL (30.0-36.0); Mean Corpuscular Hemoglobin 32.9 pg (28.0-34.0); Mean Corpuscular Volume 94.7 fL (81-99); Mean Platelet Volume 10.8 fL (7.4-10.4); Monocytes # 0.3 10^3/uL (0.2-0.9); Monocytes % 4.7 %; Neutrophils # 3.61 10^3/uL (1.8-7.7); Neutrophils % 56.5 %; Nucleated Red Blood Cells % 0 %; Platelet Count 223 10^3/cmm (130-400); Red Blood Count 4.68 10^6/uL (4.1-5.3); Red Cell Distribution Width 12.9 % (12.1-15.1); White Blood Count 6.4 10^3/uL (4.0-10.0)
[2020-07-22 12:40] LABS: HCG Qualitative Urine. Negative (Negative)
[2020-07-22] MEDS: iohexol 300 mg/mL 100 mL Btl IV (12:40)
[2020-07-22 12:47] LABS: Glucose Urine UA Norm (Normal); Ketones Urine Negative (Negative); Protein Urine Neg (Negative); Specific Gravity, Urine 1.015 (1.005-1.030); Urine Appearance SL Hazy (CLEAR); Urine Color Straw (Yellow); pH Urine 8 (5-7)
[2020-07-22 12:48] LABS: Add Urine Culture? No; Add Urine Microscopic? YES; Bacteria Urine 1+ /hpf; Bilirubin Urine Neg (Negative); Blood Urine Neg (Negative); Leukocyte Esterase Urine Negative (Negative); Nitrate Urine Negative (Negative); Squamous Epithelial Cell Urine 15-25 /hpf (0-5); Sulfosalicylic Acid Urine Negative (Negative); Urobilinogen Urine Norm (Negative)
[2020-07-22] MEDS: morphine 4 mg/mL SDV 1 mL 2 MG IVP (12:56)
[2020-07-22] MEDS: ondansetron 2 mg/ML SDV 2 mL 4 MG IVP (12:56)
[2020-07-22] MEDS: sodium chloride 0.9% 1,000 ML 999 ML IV (12:56)
[2020-07-22 13:22] LABS: Lactate (Lactic Acid level) 1.8 mmol/L (0.5-2.2)
[2020-07-22 13:23] LABS: Alanine Aminotransferase 13 U/L (0-33); Albumin Level 3.6 g/dL (3.5-5.2); Alkaline Phosphatase 68 IU/L (35-105); Anion Gap 9.7 (5-19); Aspartate Amino Transferase 14 U/L (0-32); Blood Urea Nitrogen 8 mg/dL (6-20); Calcium 8.5 mg/dL (8.5-10.5); Carbon Dioxide 24 mmol/L (22-29); Chloride 105 mmol/L (98-107); Globulin 2.2 g/dL (1.3-4.6); Glomerular Filtration Rate 106.7 mL/min (90-130); Glucose 73 mg/dL (65-115); Osmolality Calculated 277 mOsm/kg (285-295); Potassium 3.7 mmol/L (3.5-5.1); Sodium 135 mmol/L (136-145); Total Bilirubin 0.3 mg/dL (0.15-1.2); Total Protein 5.8 g/dL (6.6-8.7)
--- NOTE | 2020-07-22 13:42 | ED_ITS ---
HPI - Abdominal Pain General: Chief Complaint: Abdominal Pain Stated Complaint: NAUSEA, SEVERE LOWER BACK PAIN Time Seen by Provider: 07/22/20 11:59 History of Present Illness: HPI narrative: The patient is a 50-year-old female who comes to the ER complaining of severe abdominal pain, nausea, vomiting. She says she had an EGD and colonoscopy yesterday related to heartburn and looking for cancerous polyps. She says she was not giving any any pain medicines during the procedure and she has been in severe pain ever since and worse today. MD elicited complaint: abdominal pain Onset (ago): hour(s) (24) Location: Diffuse Severity: moderate Quality: sharp Radiation: none Migration to: no migration Relieving factors: nothing Associated Symptoms: Reports nausea and vomiting Review of Systems General: Reports: 10 or more systems reviewed and unremarkable except in HPI and below Const: Denies: fatigue Eyes: Denies: change in vision, blurry vision or eye redness ENMT: Denies: throat pain, swelling of lips/tongue, ear or mastoid pain or nasal congestion Card: Denies: chest pain, palpitations, irregular heart rhythm, edema, dyspnea on exertion or orthopnea Resp: Denies: dyspnea, productive cough or non-productive cough GI: Reports: abdominal pain, nausea and vomiting : Denies: flank pain, difficulty voiding, urinary frequency or urinary urgency Musc: Denies: neck pain, back pain, extremity pain, joint pain, joint redness, limited range of motion or muscle weakness Skin/Breast: Denies: rash, pruritus, erythema, skin pain or skin tenderness Neuro: Denies: headache(s), numbness in extremities, weakness in extremities, sensory changes, difficulty walking, dizziness, confusion or Slurred speech present Psych: Denies: anxiety or depression Endo: Denies: polyuria All/Imm: Denies: urticaria, throat swelling or tongue swelling PFSH ED PFSH: Medical History (Updated 07/22/20 @ 15:34 by Khai Biswas MD) Screen for colon cancer Social History Smoking and tobacco status: current every day smoker Alcohol intake: never Physical Exam Const: COMMON NORMALS: no acute distress, average body habitus, patient oriented x3, no limitations, healthy appearing, alert and well nourished GENERAL APPEARANCE: cooperative, comfortable, well kempt and well developed ORIENTATION/CONSCIOUSNESS: Yes awake, Yes oriented to person, Yes oriented to place and Yes oriented to time HENMT: COMMON NORMALS: normocephalic, external ears normal and Normal external nose present HEAD & SCALP: normal to inspection and normocephalic NOSE: Normal external nose present EXTERNAL EAR: Yes external ears normal MOUTH: Normal oral and palatal mucosa present THROAT: posterior oropharynx normal Eye: COMMON NORMALS: Equal, round and reactive pupils present and EOMs intact bilaterally GENERAL EYE: appearance normal, both eyes and all related structures PUPIL: Yes Equal, round and reactive pupils present Neck/C-Spine: COMMON NORMALS: full ROM, no lymphadenopathy, no meningeal signs and no JVD GENERAL: Yes normal visual inspection Lymph: LYMPHATIC: no lymphadenopathy noted Chest: COMMONS NORMALS: normal inspection of the chest and normal palpation of entire chest wall Resp: COMMON NORMALS: normal respiratory effort, No retractions, No use of accessory muscles, clear to auscultation bilaterally and percussion normal EFFORT & INSPECTION: Yes able to speak in complete sentences AUSCULTATION: clear to auscultation bilaterally PERCUSSION: percussion normal Cardio: COMMON NORMALS: no JVD, regular rate, regular rhythm, S1 normal heart sound present, S2 normal heart sound present and Peripheral pulses 2+ throughout RATE: regular rate RHYTHM: regular rhythm HEART SOUNDS: S1 normal heart sound present and S2 normal heart sound present PERIPHERAL PULSES: Peripheral pulses 2+ throughout GI: COMMON NORMALS: Soft to palpation PALPATION: Yes Soft to palpation and Yes Tenderness to palpation present (GI) Details: LLQ, RLQ, LUQ and RUQ : COMMON NORMALS: Yes no CVA tenderness BLADDER/KIDNEY EXAM: Yes no CVA tenderness Back/Pelvis: COMMON NORMALS: no CVA tenderness, thoracic and lumbar spine normal to inspection, no thoracic nor lumbar tenderness and thoraco-lumbar ROM normal Extremity: COMMON NORMALS: normal to inspection, full ROM, capillary refill normal, no joint enlargement and no pedal edema GENERAL: Yes normal exam except as noted Neuro: COMMON NORMALS: patient oriented x3, CN's II-XII intact bilaterally, moves all extremities, no focal motor deficits, no sensory deficits noted and gait normal SENSORIUM/ORIENTATION: Yes alert, Yes oriented to person, Yes oriented to place and Yes oriented to time MENINGEAL SIGNS: Yes no meningeal signs Psych: COMMON NORMALS: mental status grossly normal, Normal thought process present, cooperative, normal affect and speech normal APPEARANCE: Yes well kempt ATTITUDE: Yes calm SPEECH: Yes normal speech THOUGHT PROCESS: Normal thought process present Skin: COMMON NORMALS: no rashes or lesions noted GENERAL SKIN EXAM: no rashes or lesions noted Course Vital Signs: Vital signs: Vital Signs Temperature 98.3 F 07/22/20 12:09 Pulse Rate 78 07/22/20 14:59 Respiratory Rate 18 07/22/20 15:00 Blood Pressure 110/84 07/22/20 14:59 Pulse Oximetry 100 07/22/20 14:59 MDM - Abdominal Pain MDM Narrative: Medical decision making narrative: Patient came in complaining of severe diffuse abdominal pain. Labs and CT are normal. Given GI cocktail with some improvement of her symptoms. Stable for discharge. Follow-up with GI next week and return to ER with worsening symptoms Lab Data: Labs: Lab Results 07/22/20 07/22/20 07/22/20 Range/Units 12:00 12:00 12:00 WBC 6.4 (4.0-10.0) 10^3/ uL RBC 4.68 (4.1-5.3) 10^6/u L Hgb 15.4 H (11.5-15.3) g/dL Hct 44.3 (37.0-47.0) % MCV 94.7 (81-99) fL MCH 32.9 (28.0-34.0) pg MCHC 34.8 (30.0-36.0) g/dL RDW 12.9 (12.1-15.1) % Plt Count 223 (130-400) 10^3/c mm MPV 10.8 H (7.4-10.4) fL Neut % (Auto) 56.5 % Lymph % (Auto) 36.3 % Ventura % (Auto) 4.7 % Eos % (Auto) 1.7 % Baso % (Auto) 0.6 % Neut # (Auto) 3.61 (1.8-7.7) 10^3/u L Lymph # (Auto) 2.3 (0.8-4.8) 10^3/u L Ventura # (Auto) 0.3 (0.2-0.9) 10^3/u L Eos # (Auto) 0.1 (0.0-0.8) 10^3/u L Baso # (Auto) 0.0 (0.0-0.1) 10^3/u L Nucleated RBC % (a uto) 0 % Nucleated RBCs # 0.0 /100WBC Sodium Cancelled Potassium Cancelled Chloride Cancelled Carbon Dioxide Cancelled Anion Gap Cancelled BUN Cancelled Creatinine Cancelled GFR Calculation Cancelled Glucose Cancelled Calculated Osmolal ity Cancelled Lactate (0.5-2.2) mmol/L Calcium Cancelled Total Bilirubin Cancelled AST Cancelled ALT Cancelled Alkaline Phosphata se Cancelled Total Protein Cancelled Albumin Cancelled Globulin Cancelled Lipase Cancelled HCG, Qual Negative (Negative) Urine Color (Yellow) Urine Appearance (CLEAR) Urine pH (5-7) Ur Specific Gravit y (1.005-1.030) Urine Protein (Negative) Urine Glucose (UA) (Normal) Urine Ketones (Negative) Urine Blood (Negative) Urine Nitrate (Negative) Urine Bilirubin (Negative) Prot Sulfosalicyli c Acd (Negative) Urine Urobilinogen (Negative) mg/dL Ur Leukocyte Melvina ase (Negative) Urine RBC (0-2) /hpf Urine WBC (0-5) /hpf Ur Squamous Epith Cells (0-5) /hpf Amorphous Sediment Urine Bacteria (NONE) /hpf 07/22/20 07/22/20 07/22/20 Range/Units 12:00 12:57 12:57 WBC (4.0-10.0) 10^3/ uL RBC (4.1-5.3) 10^6/u L Hgb (11.5-15.3) g/dL Hct (37.0-47.0) % MCV (81-99) fL MCH (28.0-34.0) pg MCHC (30.0-36.0) g/dL RDW (12.1-15.1) % Plt Count (130-400) 10^3/c mm MPV (7.4-10.4) fL Neut % (Auto) % Lymph % (Auto) % Ventura % (Auto) % Eos % (Auto) % Baso % (Auto) % Neut # (Auto) (1.8-7.7) 10^3/u L Lymph # (Auto) (0.8-4.8) 10^3/u L Ventura # (Auto) (0.2-0.9) 10^3/u L Eos # (Auto) (0.0-0.8) 10^3/u L Baso # (Auto) (0.0-0.1) 10^3/u L Nucleated RBC % (a uto) % Nucleated RBCs # /100WBC Sodium 135 L Potassium 3.7 Chloride 105 Carbon Dioxide 24 Anion Gap 9.7 BUN 8 Creatinine 0.6 GFR Calculation 106.7 Glucose 73 Calculated Osmolal ity 277 L Lactate 1.8 (0.5-2.2) mmol/L Calcium 8.5 Total Bilirubin 0.3 AST 14 ALT 13 Alkaline Phosphata se 68 Total Protein 5.8 L Albumin 3.6 Globulin 2.2 Lipase HCG, Qual (Negative) Urine Color Straw (Yellow) Urine Appearance Sl hazy (CLEAR) Urine pH 8 H (5-7) Ur Specific Gravit y 1.015 (1.005-1.030) Urine Protein Neg (Negative) Urine Glucose (UA) Norm (Normal) Urine Ketones Negative (Negative) Urine Blood Neg (Negative) Urine Nitrate Negative (Negative) Urine Bilirubin Neg (Negative) Prot Sulfosalicyli c Acd Negative (Negative) Urine Urobilinogen Norm (Negative) mg/dL Ur Leukocyte Melvina ase Negative (Negative) Urine RBC None (0-2) /hpf Urine WBC None (0-5) /hpf Ur Squamous Epith Cells 15-25 H (0-5) /hpf Amorphous Sediment Not Reportable Urine Bacteria 1+ H (NONE) /hpf 07/22/20 Range/Units 12:57 WBC (4.0-10.0) 10^3/ uL RBC (4.1-5.3) 10^6/u L Hgb (11.5-15.3) g/dL Hct (37.0-47.0) % MCV (81-99) fL MCH (28.0-34.0) pg MCHC (30.0-36.0) g/dL RDW (12.1-15.1) % Plt Count (130-400) 10^3/c mm MPV (7.4-10.4) fL Neut % (Auto) % Lymph % (Auto) % Ventura % (Auto) % Eos % (Auto) % Baso % (Auto) % Neut # (Auto) (1.8-7.7) 10^3/u L Lymph # (Auto) (0.8-4.8) 10^3/u L Ventura # (Auto) (0.2-0.9) 10^3/u L Eos # (Auto) (0.0-0.8) 10^3/u L Baso # (Auto) (0.0-0.1) 10^3/u L Nucleated RBC % (a uto) % Nucleated RBCs # /100WBC Sodium Potassium Chloride Carbon Dioxide Anion Gap BUN Creatinine GFR Calculation Glucose Calculated Osmolal ity Lactate (0.5-2.2) mmol/L Calcium Total Bilirubin AST ALT Alkaline Phosphata se Total Protein Albumin Globulin Lipase 29 HCG, Qual (Negative) Urine Color (Yellow) Urine Appearance (CLEAR) Urine pH (5-7) Ur Specific Gravit y (1.005-1.030) Urine Protein (Negative) Urine Glucose (UA) (Normal) Urine Ketones (Negative) Urine Blood (Negative) Urine Nitrate (Negative) Urine Bilirubin (Negative) Prot Sulfosalicyli c Acd (Negative) Urine Urobilinogen (Negative) mg/dL Ur Leukocyte Melvina ase (Negative) Urine RBC (0-2) /hpf Urine WBC (0-5) /hpf Ur Squamous Epith Cells (0-5) /hpf Amorphous Sediment Urine Bacteria (NONE) /hpf Discharge Plan Discharge Patient Disposition: Home Clinical Impression: Gastritis, GERD (gastroesophageal reflux disease) Condition: Stable Prescriptions: No Action aripiprazole [Abilify] 5 mg tablet 5 mg PO DAILY@20 RF: 0 topiramate [Topamax] 25 mg tablet 25 mg PO BID@,18 RF: 0 estradiol 0.1 mg/24 hr patch semiweekly See Rx Instructions .ROUTE .COMPLEX RF: 0 clonazepam 1 mg tablet 1 mg PO DAILY PRN (Reason: Anxiety) RF: 0 hydroxyzine pamoate 50 mg capsule 50 mg PO BID PRN (Reason: Anxiety) RF: 0 albuterol sulfate 90 mcg/actuation HFA aerosol inhaler 2 puff INHALATION Q6H PRN (Reason: Shortness Of Breath) RF: 0 bupropion HCl 300 mg tablet extended release 24 hr 300 mg PO QAM RF: 0 budesonide-formoterol 160-4.5 mcg/actuation HFA aerosol inhaler 2 puff INHALATION BID PRN (Reason: unknown) RF: 0 pantoprazole [Protonix] 40 mg tablet,delayed release (DR/EC) 40 mg PO DAILY 30 Days Qty: 30 RF: 2 Carafate 100 mg/mL suspension 10 ml PO TID RF: 0 Discharge Orders: Discharge ED (Routine); Ordered 07/22/20 Ordered By: Khai Biswas Referrals: Rena Stallworth FNP [Primary Care Provider] - Discharge Diet: Advance as tolerated Discharge Activity: Resume usual activity Patient Instructions: Gastroesophageal Reflux Disease (ED), Opioid Safety Activity Restrictions/Additional Instructions: You are likely continuing to have severe heartburn. Please take Maalox at home or another method of relieving your pain. Return to the ER with worsening symptoms otherwise follow-up with your GI doctor next week. Coding Level of Care Code ED Publication Distributor for Mayra Fwgonzalo Exam Comprehensive
[2020-07-22 14:09] LABS: Lipase 29 U/L (13-60)
[2020-07-22] MEDS: lidocaine 2% viscous 15 ML, aluminum-mag hydrox-simethicon 30 ML, sucralfate oral liq 1 GM PO (14:23)
== END 2020-07-22 16:23 | disposition home or self-care (01) ==
PROVIDERS: Emergency Provider Family Medicine; PCP Nurse Practitioner Family
DX: K29.70 Gastritis, unspecified, without bleeding (principal); K21.9 Gastro-esophageal reflux disease without esophagitis; F17.210 Nicotine dependence, cigarettes, uncomplicated
CPT/HCPCS: 36415; 74177; 80053; 81001; 81025; 83605; 83690; 85025; 96361; 96374; 96375; 99283; J2270; J2405; J7030; Q9967

== ENCOUNTER 2020-08-30 06:50 | Outpatient (CLI) | payer MEDICAID, SELFPAY ==
--- NOTE | 2020-08-30 07:15 | US_ITS ---
WS: [id number] RIGHT UPPER QUADRANT ULTRASOUND HISTORY: R10.9 - Unspecified abdominal pain COMPARISON: 07/22/2020 Liver: 13.6 cm in length. Normal size liver. No bile duct dilatation or mass. Gallbladder: Normally distended gallbladder with no stones or wall thickening. CBD: 0.4 cm Pancreas: Normal size and echogenicity. Right kidney: 10.6 cm in length. Normal size and echogenicity. No hydronephrosis or mass. Aorta and IVC: Unremarkable abdominal aorta and IVC. No ascites. US/US gall bladder [id number] IMPRESSION: Normal RIGHT upper quadrant ultrasound.
== END 2020-08-30 06:51 | disposition home or self-care (01) ==
LOC: US 06:51
PROVIDERS: PCP Nurse Practitioner Family; Visit Provider Surgery
DX: R10.9 Unspecified abdominal pain (principal)
CPT/HCPCS: 76705

== ENCOUNTER 2020-09-15 09:41 | Outpatient (CLI) | payer MEDICAID, SELFPAY ==
--- NOTE | 2020-09-15 10:00 | NM_ITS ---
WS: [id number] NUCLEAR MEDICINE HIDA SCAN WITH GALLBLADDER EJECTION FRACTION HISTORY: R10.9 - Unspecified abdominal pain COMPARISON: Gallbladder ultrasound 08/30/2020 TECHNIQUE: The patient was intravenously injected with 7.7 mCi of TC99m Mebrofenin. Immediate imaging over the right upper quadrant was followed by 5 minute image and additional images for a total of 60 minutes. Normal uptake of radiotracer throughout the liver. Activity identified in the gallbladder at 20 minutes and well distended by 60 minutes. Activity in the proximal small bowel was seen by 50 minutes. Good washout of the radiotracer from the liver by 60 minutes. The patient then drank 8 ounces of Ensure Plus. Ejection fraction at 60 minutes was 91%. Normal GB ej ection fraction is 35-75%. Post fatty meal symptoms: None. NM/NM hepatobiliary w phar* [id number] IMPRESSION: 1. Normal HIDA scan. 2. Normal gallbladder ejection fraction.
== END 2020-09-15 09:42 | disposition home or self-care (01) ==
PROVIDERS: PCP Nurse Practitioner Family; Visit Provider Surgery
DX: R10.9 Unspecified abdominal pain (principal)
CPT/HCPCS: 78227; A9537

== ENCOUNTER 2020-12-17 10:30 | Emergency (ER) | payer MEDICAID, SELFPAY ==
[2020-12-17 10:40] VITALS: BP 155/90; PULSE 70; RESP 18; TEMP 36.5; O2SAT 98; BMI 24.1
--- NOTE | 2020-12-17 10:50 | XRR_ITS ---
PROCEDURE INFORMATION: Exam: XR Chest Exam date and time: 12/17/2020 10:50 AM Age: 50 years old Clinical indication: Cough TECHNIQUE: Imaging protocol: XR of the chest. Views: 1 view. COMPARISON: CT abdomen pelvis w con* [id number] 07/22/2020 12:50 PM FINDINGS: Lungs: Unremarkable. No consolidation. Pleural spaces: Unremarkable. No pleural effusion. No pneumothorax. Heart/Mediastinum: Unremarkable. No cardiomegaly. Bones/joints: Unremarkable. XR/XR chest 1V portable [id number] IMPRESSION: No acute findings.
[2020-12-17] MEDS: albuterol 8 gm MDI 2 PUFF INHALATION (11:10)
[2020-12-17 11:16] VITALS: PULSE 61; RESP 18; O2SAT 97
[2020-12-17 11:29] LABS: SARS Covid-2 Antigen Negative (Negative)
--- NOTE | 2020-12-17 11:31 | W.ED.COVID ---
HPI - COVID General: Chief Complaint: COVID symptoms Stated Complaint: COUGH, H/A Time Seen by Provider: 12/17/20 10:34 Source: patient Triage information: Has fever, cough or shortness of breath. Exposure to COVID + person last 14 days History of Present Illness: MD complaint: reported COVID exposure COVID 19 common symptoms: positive cough, non-productive cough, body aches and nasal congestion; negative fever(s), headache(s), throat pain or nausea COVID 19 other sytmptoms: negative chest pain COVID Results: SARS-CoV-2 Antigen (Rapid) Negative (Negative) 12/17/20 10:53 12/17/20 Nasal/Oral Coronavirus 2019 PCR Not detected 07/17/20 10:03 07/17/20 Review of Systems Const: Reports: body aches; Denies: fever(s) ENMT: Reports: nasal congestion; Denies: throat pain Card: Denies: chest pain or palpitations Resp: Reports: non-productive cough and chest congestion GI: Denies: abdominal pain or nausea : Denies: flank pain or difficulty voiding Musc: Denies: neck pain Skin/Breast: Denies: rash Neuro: Denies: headache(s) Psych: Denies: anxiety PFSH ED PFSH: Medical History Gastritis Rectal polyp Screen for colon cancer Family History Denies family history of Anesthesia complication Bleeding disorder Social History Smoking and tobacco status: current every day smoker Alcohol intake: never Physical Exam Const: COMMON NORMALS: no acute distress, average body habitus, patient oriented x3, no limitations, healthy appearing, alert and well nourished HENMT: COMMON NORMALS: normocephalic, atraumatic, hearing grossly normal bilaterally, external ears normal, EAC's normal, TM's normal bilaterally, Normal external nose present, Normal nasal mucous membranes and turbinates present, moist oral mucous membranes, oropharynx normal, dentition normal and gingiva normal HEAD & SCALP: normocephalic and atraumatic NOSE: Normal external nose present and Normal nasal mucous membranes and turbinates present EXTERNAL EAR: Yes external ears normal EXTERNAL AUDITORY CANAL: EAC's normal TYMPANIC MEMBRANE: TM's normal bilaterally Neck/C-Spine: COMMON NORMALS: no JVD Resp: COMMON NORMALS: normal respiratory effort, No retractions, No use of accessory muscles and percussion normal AUSCULTATION: wheezes PERCUSSION: percussion normal Cardio: COMMON NORMALS: no JVD, regular rate, regular rhythm, S1 normal heart sound present, S2 normal heart sound present, No gallops present (Cardio), No clicks present (Cardio), No murmurs present (Cardio), No rub (Cardio) and Peripheral pulses 2+ throughout RATE: regular rate RHYTHM: regular rhythm HEART SOUNDS: S1 normal heart sound present and S2 normal heart sound present PERIPHERAL PULSES: Peripheral pulses 2+ throughout Extremity: COMMON NORMALS: normal to inspection, full ROM, capillary refill normal, no joint enlargement, no clubbing, cyanosis or edema, no calf tenderness and no pedal edema Neuro: COMMON NORMALS: patient oriented x3 SENSORIUM/ORIENTATION: Yes alert Course Vital Signs: Vital signs: Vital Signs Temperature 97.7 F 12/17/20 10:40 Pulse Rate 61 12/17/20 11:16 Respiratory Rate 18 12/17/20 11:16 Blood Pressure 155/90 12/17/20 10:40 Pulse Oximetry 97 12/17/20 11:16 MDM - COVID MDM Narrative: Medical decision making narrative: Patient presents with cough and congestion x2 days. Did have an exposure to somebody that tested positive for Covid about 2 weeks ago. She denies having any fever. She does smoke and is a little wheezy on physical exam. Was given albuterol inhaler for this. Her Covid test was negative. Patient is not hypoxic. Chest x-ray is normal. Discharge patient home with azithromycin and albuterol and prednisone for upper respiratory infection. Lab Data: Labs: Lab Results 12/17/20 Range/Units 10:53 SARS-CoV-2 Ag (Rap id) Negative (Negative) COVID Results: SARS-CoV-2 Antigen (Rapid) Negative (Negative) 12/17/20 10:53 12/17/20 Nasal/Oral Coronavirus 2019 PCR Not detected 07/17/20 10:03 07/17/20 Discharge Plan Discharge Patient Disposition: Home Clinical Impression: Upper respiratory infection Qualifiers: URI type: unspecified URI Qualified Code(s): J06.9 - Acute upper respiratory infection, unspecified Condition: Stable Prescriptions: New albuterol sulfate [Ventolin HFA] 90 mcg/actuation HFA aerosol inhaler 2 inh inhalation Q4H Qty: 8.5 RF: 0 prednisone 20 mg tablet 20 mg PO BID 5 Days Qty: 10 RF: 0 azithromycin 250 mg tablet See Rx Instructions .ROUTE .COMPLEX Qty: 6 RF: 0 No Action aripiprazole [Abilify] 5 mg tablet 5 mg PO DAILY@20 RF: 0 topiramate [Topamax] 25 mg tablet 25 mg PO BID@03,18 RF: 0 pantoprazole [Protonix] 40 mg tablet,delayed release (DR/EC) 40 mg PO DAILY 30 Days Qty: 30 RF: 2 estradiol 0.1 mg/24 hr patch semiweekly See Rx Instructions .ROUTE .COMPLEX RF: 0 clonazepam 1 mg tablet 1 mg PO DAILY PRN (Reason: Anxiety) RF: 0 hydroxyzine pamoate 50 mg capsule 50 mg PO BID PRN (Reason: Anxiety) RF: 0 albuterol sulfate 90 mcg/actuation HFA aerosol inhaler 2 puff INHALATION Q6H PRN (Reason: Shortness Of Breath) RF: 0 bupropion HCl 300 mg tablet extended release 24 hr 300 mg PO QAM RF: 0 budesonide-formoterol 160-4.5 mcg/actuation HFA aerosol inhaler 2 puff INHALATION BID PRN (Reason: unknown) RF: 0 Discharge Orders: Discharge ED (Routine); Ordered 12/17/20 Ordered By: Yovani Richardson Referrals: Rena Stallworth FNP [Primary Care Provider] - Discharge Diet: Usual diet Discharge Activity: Resume usual activity Patient Instructions: Opioid Safety Coding Level of Care Code ED Maintenance Planner for Mayra Morgan
== END 2020-12-17 11:44 | disposition home or self-care (01) ==
PROVIDERS: Emergency Provider Emergency Medicine; PCP Nurse Practitioner Family
DX: J06.9 Acute upper respiratory infection, unspecified (principal); F17.210 Nicotine dependence, cigarettes, uncomplicated; Z20.822 Contact with and (suspected) exposure to COVID-19
CPT/HCPCS: 71045; 87426; 94640; 99283; J3535

== ENCOUNTER → 2021-06-20 11:08 | Outpatient (BNVA) | payer OTHER, MEDICAID, SELFPAY | PROVIDERS: PCP Nurse Practitioner Family; Referring Provider Nurse Practitioner Family; Visit Provider Specialist | DX: M25.511 Pain in right shoulder (principal) | CPT/HCPCS: 73030 ==

== ENCOUNTER → 2021-08-21 08:13 | Outpatient (BNVA) | payer OTHER, MEDICAID, SELFPAY | PROVIDERS: PCP Nurse Practitioner Family; Referring Provider Specialist; Visit Provider Specialist | DX: G56.01 Carpal tunnel syndrome, right upper limb (principal); M54.2 Cervicalgia; M75.01 Adhesive capsulitis of right shoulder; F17.200 Nicotine dependence, unspecified, uncomplicated | CPT/HCPCS: 95910; 99203 ==

== ENCOUNTER 2021-09-17 10:00 | Outpatient (CLI) | payer OTHER, MEDICAID, SELFPAY ==
--- NOTE | 2021-09-17 10:15 | MR_ITS ---
WS: [id number] MRI CERVICAL SPINE NONCONTRAST TECHNIQUE: Sagittal T1, T2 and STIR imaging. Axial T2, gradient, and fiesta imaging. CLINICAL INFORMATION: M75.01 - Adhesive capsulitis of right shoulder COMPARISON: None. FINDINGS: Straightening with slight reversal of the normal cervical lordosis. Mild disc bulging C5-C6 and C6-C7 . C2-C3: Normal. C3-C4: Normal. C4-C5: Slight anterolisthesis. Mild LEFT and no significant RIGHT bony foraminal narrowing. Mild face t arthropathy. Spinal canal is patent. C5-C6: Disc osteophyte complex with endplate ridging. Mild central canal stenosis. Moderate RIGHT fac et arthropathy. RIGHT facet edema. Mild central canal stenosis. Mild LEFT greater than RIGHT bony for aminal narrowing. C6-C7: Disc osteophyte complex with endplate ridging. Slight effacement of ventral thecal sac. Mild c entral canal stenosis. Moderate LEFT greater than RIGHT bony foraminal narrowing. Uncovertebral joint hypertrophy. C7-T1: Mild LEFT and no significant RIGHT foraminal narrowing. Spinal canal is patent Visualized brain stem structures: Normal. Prevertebral soft tissues: Normal. MR/MR cervical spin wo con* [id number] IMPRESSION: 1. Straightening with slight reversal of the normal cervical lordosis. 2. Mild central canal stenosis C5-C6 and C6-C7 due to disc osteophyte complexe s with slight effacement of ventral thecal sac. 3. Moderate RIGHT facet arthropathy C5-C6 with a small amount of edema compati ble with synovitis. 4. Moderate bilateral bony foraminal narrowing C6-C7 worse in the LEFT.
== END 2021-09-17 10:01 | disposition home or self-care (01) ==
PROVIDERS: PCP Nurse Practitioner Family; Visit Provider Specialist
DX: R20.0 Anesthesia of skin (principal); M48.02 Spinal stenosis, cervical region; M47.892 Other spondylosis, cervical region; M25.78 Osteophyte, vertebrae; M54.2 Cervicalgia; F17.210 Nicotine dependence, cigarettes, uncomplicated; M25.519 Pain in unspecified shoulder; M75.01 Adhesive capsulitis of right shoulder
CPT/HCPCS: 72141; 99213; 99214

== ENCOUNTER 2022-01-10 19:17 | Emergency (ER) | payer MEDICAID, SELFPAY ==
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
[2022-01-10 19:43] VITALS: BP 147/84; PULSE 96; RESP 16; TEMP 36.8; O2SAT 95
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
[2022-01-10 20:34] LABS: Add Urine Microscopic? NO; Charge for UA Resulting for Rev
[2022-01-10 20:36] LABS: Basophils # 0.1 10^3/uL (0.0-0.1); Basophils % 0.5 %; Eosinophils # 0.2 10^3/uL (0.0-0.8); Eosinophils % 1.9 %; Hematocrit 41.4 % (37.0-47.0); Hemoglobin 13.7 g/dL (11.5-15.3); Lymphocytes # 2.1 10^3/uL (0.8-4.8); Lymphocytes % 21.8 %; Mean Corpuscular HGB Conc 33.1 g/dL (30.0-36.0); Mean Corpuscular Hemoglobin 32.4 pg (28.0-34.0); Mean Corpuscular Volume 97.9 fl (81-99); Mean Platelet Volume 9.9 fL (7.4-10.4); Monocytes # 0.6 10^3/uL (0.2-0.9); Monocytes % 6.5 %; Neutrophils # 6.66 10^3/uL (1.8-7.7); Neutrophils % 68.9 %; Nucleated Red Blood Cells % 0 %; Platelet Count 270 10^3/cmm (130-400); Red Blood Count 4.23 10^6/uL (4.1-5.3); Red Cell Distribution Width 12.3 % (12.1-15.1); White Blood Count 9.7 10^3/uL (4.0-10.0)
[2022-01-10 20:36] LABS: Bilirubin Urine Neg (Negative); Blood Urine Neg (Negative); Glucose Urine UA Norm (Normal); Ketones Urine Negative (Negative); Leukocyte Esterase Urine Negative (Negative); Nitrate Urine Negative (Negative); Protein Urine Neg (Negative); Urine Appearance Clear (CLEAR); Urine Color Yellow (Yellow); Urobilinogen Urine Norm (Negative); pH Urine 5 (5-7)
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
[2022-01-10 21:04] LABS: Alanine Aminotransferase 19 U/L (0-33); Albumin Level 4.3 g/dL (3.5-5.2); Alkaline Phosphatase 96 IU/L (35-105); Anion Gap 11.9 (5-19); Aspartate Amino Transferase 17 U/L (0-32); Blood Urea Nitrogen 13 mg/dL (6-20); Calcium 9.2 mg/dL (8.5-10.5); Carbon Dioxide 26 mmol/L (22-29); Chloride 106 mmol/L (98-107); Globulin 2.3 g/dL (1.3-4.6); Glomerular Filtration Rate 88.9 mL/min (90-130); Glucose 82 mg/dL (65-115); Osmolality Calculated 289 mOsm/kg (285-295); Potassium 3.9 mmol/L (3.5-5.1); Sodium 140 mmol/L (136-145); Total Bilirubin 0.2 mg/dL (0.15-1.2); Total Protein 6.6 g/dL (6.6-8.7)
[2022-01-10] MEDS: haloperidol inj 5 mg/mL INJ 1 mL 2 MG IVP (21:52)
[2022-01-10] MEDS: acetaminophen 500 mg Tablet 1000 MG PO (21:52)
[2022-01-10] MEDS: LORazepam 1 mg Tablet PO (21:53)
[2022-01-10] MEDS: ketorolac 30 mg/mL INJ 15 MG IVP (21:53)
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
[2022-01-10 22:22] VITALS: BP 146/79
[2022-01-10] MEDS: iohexol 350 mg/mL 100 mL Btl IV (23:19)
[2022-01-11 00:09] VITALS: BP 146/79
== END 2022-01-11 02:34 | disposition home or self-care (01) ==
PROVIDERS: Emergency Provider Emergency Medicine; PCP Nurse Practitioner Family
DX: T71.9XXA Asphyxiation due to unspecified cause, initial encounter (principal); S70.12XA Contusion of left thigh, initial encounter; S70.11XA Contusion of right thigh, initial encounter; S10.93XA Contusion of unspecified part of neck, initial encounter; Y04.2XXA Assault by strike against or bumped into by another person, initial encounter; F17.210 Nicotine dependence, cigarettes, uncomplicated
CPT/HCPCS: 70450; 70496; 70498; 80053; 81003; 85025; 96374; 96375; 99285; J1630; J1885; Q9967

== ENCOUNTER 2022-12-24 11:56 | Outpatient (CLI) | payer MEDICAID, SELFPAY ==
--- NOTE | 2022-12-24 12:39 | USCV_ITS ---
Domenica Paige Age: 52 Gender: F : 1970 Exam Date: 12/24/2022 12:48 Ordering Phys: Rena Stallworth LADLE PULLER LADLE PULLER Technologist: Exam Location: [facility] [place] Indication: pad edema RIGHT LEFT Brachial 154.00 mmHg Brachial 151.00 mmHg Pressure (mmHg) Waveform Pressure (mmHg) Waveform 150.00 PHOTONICS TECHNICIAN 159.00 152.00 DPA 154.00 0.97 Ankle/Brachial Index 1.03 101.00 Pre-Exercise Toe Pressure 83.00 0.66 Pre-Exercise Toe/Brachial Index 0.54 FINDINGS Resting LIANET of 0.97 on the right and 1.03 on the left Resting TBI of 0.66 on the right and 0.54 on the left CONCLUSIONS 1. Normal resting ABIs bilaterally 2. Slightly diminished resting TBIs bilaterally, suggesting mild peripheral artery disease, possibly involving the distal vessels Dr Araceli Jose MD [facility] (Electronically Signed) Final Date: 24 December 2022 20:27 S
== END 2022-12-24 11:57 | disposition home or self-care (01) ==
PROVIDERS: PCP Nurse Practitioner Family; Visit Provider Nurse Practitioner Family
DX: I73.9 Peripheral vascular disease, unspecified (principal); R60.0 Localized edema
CPT/HCPCS: 93922

== ENCOUNTER 2023-01-10 18:32 | Emergency (ER) | payer MEDICAID, SELFPAY ==
[2023-01-10 18:34] VITALS: BP 221/131; RESP 24; TEMP 36.5; BMI 32.3
--- NOTE | 2023-01-10 18:34 | XRR_ITS ---
PROCEDURE INFORMATION: Exam: XR Chest Exam date and time: 01/10/2023 7:15 PM Age: 52 years old Clinical indication: Pain; Chest pressure; Additional info: Cp TECHNIQUE: Imaging protocol: Radiologic exam of the chest. Views: 1 view. COMPARISON: CR XR chest 2V* [id number] 12/03/2022 4:21 PM FINDINGS: Lungs: Minimal subsegmental atelectasis at the left lung base otherwise clear. No consolidation. Pleural spaces: Unremarkable. No pleural effusion. No pneumothorax. Heart/Mediastinum: Unremarkable. No cardiomegaly. Bones/joints: Unremarkable. XR/XR chest 1V portable [id number] IMPRESSION: Mild left basilar atelectasis
--- NOTE | 2023-01-10 18:38 | ECG_ITS ---
[facility] Test Date: 2023-01-10 Pat Name: Domenica Paige Department: Room: Gender: Female [employer] Laborer: : 1970 Requested By: Marty Billingsley Order Number: [id number] Alysa MD: Jayleen Walsh M.D. Measurements Intervals [place] Rate: 92 P: 74 IN: 131 QRS: 40 QRSD: 89 T: 59 QT: 346 QTc: 430 Interpretive Statements SINUS RHYTHM No previous ECG available for comparison Electronically Signed On 01-10-2023 22:55:28 CDT by Jayleen Walsh M.D. [email or web address]
--- NOTE | 2023-01-10 18:55 | ED_ITS ---
HPI - Chest Pain General: Chief Complaint: Chest Pain Stated Complaint: chest pain Time Seen by Provider: 01/10/23 18:33 Source: patient Mode of arrival: ambulatory Limitations: no limitations History of Present Illness: 52-year-old female states she has been having left chest pain over the last 2 to 3 weeks. States she seen urgent care diagnosed with possible pleurisy states pain is very sharp in nature is worse with movement and palpation. She states the pain is gotten worse currently an 8 out of 10 is very sharp in nature she denies any cough or shortness of breath she denies any nausea or vomiting. Associated symptoms: Deny abdominal pain, dyspnea, fever(s), nausea or vomiting Review of Systems Const: Denies: fever(s) or chills ENMT: Denies: throat pain or dental pain Card: Reports: chest pain Resp: Denies: dyspnea GI: Denies: abdominal pain, nausea, vomiting or diarrhea Musc: Denies: neck pain or back pain Skin/Breast: Denies: rash Neuro: Denies: headache(s) PFSH ED PFSH: Medical History Gastritis Rectal polyp Screen for colon cancer Family History Denies family history of Anesthesia complication Bleeding disorder Social History Smoking and tobacco status: current every day smoker (1/2 pack per day ) Alcohol intake: never Substance/Drug Use: never Physical Exam Const: COMMON NORMALS: no acute distress, patient oriented x3 and healthy appearing HENMT: COMMON NORMALS: normocephalic and atraumatic HEAD & SCALP: normocephalic and atraumatic Eye: COMMON NORMALS: Equal, round and reactive pupils present and EOMs intact bilaterally PUPIL: Yes Equal, round and reactive pupils present Neck/C-Spine: COMMON NORMALS: full ROM and supple Chest: COMMONS NORMALS: normal inspection of the chest OTHER: point tender over right chest wall Resp: COMMON NORMALS: normal respiratory effort, No retractions, No use of accessory muscles and clear to auscultation bilaterally AUSCULTATION: clear to auscultation bilaterally Cardio: COMMON NORMALS: regular rate, regular rhythm and No murmurs present (Cardio) RATE: regular rate RHYTHM: regular rhythm GI: COMMON NORMALS: Normal to inspection, nondistended, normoactive bowel sounds present, Soft to palpation, non-tender and no masses PALPATION: Yes Soft to palpation Extremity: COMMON NORMALS: normal to inspection and full ROM Neuro: COMMON NORMALS: patient oriented x3, moves all extremities and no focal motor deficits Psych: COMMON NORMALS: mental status grossly normal, Normal thought process present and cooperative THOUGHT PROCESS: Normal thought process present Skin: COMMON NORMALS: no rashes or lesions noted and no wounds GENERAL SKIN EXAM: no rashes or lesions noted Course Vital Signs: Vital signs: Vital Signs Temperature 97.7 F 01/10/23 18:34 Respiratory Rate 20 H 01/10/23 19:06 Blood Pressure 221/131 01/10/23 18:34 Pulse Oximetry 99 01/10/23 19:06 Oxygen Delivery Me thod Room Air 01/10/23 18:34 MDM - Chest Pain Medical Decision Making Patient presents for chest pains likely costochondritis versus pleuritic pain she is currently on Levaquin she is to continue blood work here is all normal. We will place her on hydrocodone for breakthrough pain she takes meloxicam as well. She is to return if worsening she understands agrees to plan. Medical Records I reviewed the patient's medical records. Lab Data I reviewed the patient's lab results. 01/10/23 19:14 01/10/23 19:14 Radiology Impressions Chest X-Ray 01/10/23 18:34 IMPRESSION: Mild left basilar atelectasis Laboratory Results WBC 9.8 10^3/uL (4.0-10.0) 01/10/23 19:14 RBC 4.61 10^6/uL (4.1-5.3) 01/10/23 19:14 Hgb 14.5 g/dL (11.5-15.3) 01/10/23 19:14 Hct 42.0 % (37.0-47.0) 01/10/23 19:14 MCV 91.1 fl (81-99) 01/10/23 19:14 MCH 31.5 pg (28.0-34.0) 01/10/23 19:14 MCHC 34.5 g/dL (30.0-36.0) 01/10/23 19:14 RDW 12.8 % (12.1-15.1) 01/10/23 19:14 Plt Count 276 10^3/cmm (130-400) 01/10/23 19:14 MPV 9.7 fL (7.4-10.4) 01/10/23 19:14 Neut % (Auto) 63.4 % 01/10/23 19:14 Lymph % (Auto) 28.6 % 01/10/23 19:14 Mcminn % (Auto) 5.9 % 01/10/23 19:14 Eos % (Auto) 1.0 % 01/10/23 19:14 Baso % (Auto) 0.5 % 01/10/23 19:14 Neut # (Auto) 6.19 10^3/uL (1.8-7.7) 01/10/23 19:14 Lymph # (Auto) 2.8 10^3/uL (0.8-4.8) 01/10/23 19:14 [place]minn # (Auto) 0.6 10^3/uL (0.2-0.9) 01/10/23 19:14 Eos # (Auto) 0.1 10^3/uL (0.0-0.8) 01/10/23 19:14 Baso # (Auto) 0.1 10^3/uL (0.0-0.1) 01/10/23 19:14 Nucleated RBC % (auto) 0 % 01/10/23 19:14 Nucleated RBCs # 0.0 /100WBC 01/10/23 19:14 Sodium 139 mmol/L (136-145) 01/10/23 19:14 Potassium 3.9 mmol/L (3.5-5.1) 01/10/23 19:14 Chloride 102 mmol/L (98-107) 01/10/23 19:14 Carbon Dioxide 26 mmol/L (22-29) 01/10/23 19:14 Anion Gap 14.9 (5-19) 01/10/23 19:14 BUN 12 mg/dL (6-20) 01/10/23 19:14 Creatinine 0.6 mg/dL (0.5-0.9) 01/10/23 19:14 GFR Calculation 105.8 mL/min (90-130) 01/10/23 19:14 Glucose 98 mg/dL (65-115) 01/10/23 19:14 Calculated Osmolality 288 mOsm/kg (285-295) 01/10/23 19:14 Calcium 9.0 mg/dL (8.5-10.5) 01/10/23 19:14 Total Bilirubin 0.3 mg/dL (0.15-1.2) 01/10/23 19:14 AST 20 U/L (0-32) 01/10/23 19:14 ALT 25 U/L (0-33) 01/10/23 19:14 Alkaline Phosphatase 100 U/L (35-105) 01/10/23 19:14 Troponin T Baseline 8 ng/L (0-10) 01/10/23 19:14 Total Protein 6.1 g/dL (6.6-8.7) L 01/10/23 19:14 Albumin 3.8 g/dL (3.5-5.2) 01/10/23 19:14 Globulin 2.3 g/dL (1.3-4.6) 01/10/23 19:14 Lipase 38 U/L (13-60) 01/10/23 19:14 Discharge Plan Discharge Patient Disposition: Home Clinical Impression: Chest pain Condition: Stable Prescriptions: New hydrocodone-acetaminophen 5-325 mg tablet 1 tab PO Q6H PRN (Reason: pain) Qty: 14 0RF No Action rosuvastatin [Crestor] 5 mg tablet 5 mg PO DAILY fluoxetine [Prozac] 20 mg capsule 20 mg PO DAILY chlorzoxazone 500 mg tablet 500 mg PO TID hydrocodone-acetaminophen 5-325 mg tablet 1 tab PO Q6H PRN (Reason: pain) 5 Days Qty: 20 0RF levofloxacin 750 mg tablet 750 mg PO DAILY 7 Days Qty: 7 0RF prednisone 20 mg tablet 60 mg PO DAILY 5 Days Qty: 15 0RF ondansetron 8 mg tablet,disintegrating 8 mg PO Q8H PRN (Reason: nausea and vomiting) 5 Days Qty: 15 0RF Discharge Orders: Discharge ED (Routine); Ordered 01/10/23 Ordered By: Marty Billignsley Referrals: Rena Stallworth STATISTICAL CLERK ADVERTISING [Primary Care Provider] - Discharge Diet: Advance as tolerated Discharge Activity: Resume usual activity Patient Instructions: Chest Wall Pain (ED) Coding Level of Care Code ED Bump Grader Operator for Mayra Morgan
[2023-01-10 19:06] VITALS: RESP 20; O2SAT 99
[2023-01-10] MEDS: morphine 4 mg/mL SDV 1 mL IVP (19:06)
[2023-01-10] MEDS: ondansetron 2 mg/ML SDV 2 mL 4 MG IVP (19:06)
[2023-01-10 19:23] LABS: Basophils # 0.1 10^3/uL (0.0-0.1); Basophils % 0.5 %; Eosinophils # 0.1 10^3/uL (0.0-0.8); Hemoglobin 14.5 g/dL (11.5-15.3); Lymphocytes # 2.8 10^3/uL (0.8-4.8); Lymphocytes % 28.6 %; Mean Corpuscular HGB Conc 34.5 g/dL (30.0-36.0); Mean Corpuscular Hemoglobin 31.5 pg (28.0-34.0); Mean Corpuscular Volume 91.1 fl (81-99); Mean Platelet Volume 9.7 fL (7.4-10.4); Monocytes # 0.6 10^3/uL (0.2-0.9); Monocytes % 5.9 %; Neutrophils # 6.19 10^3/uL (1.8-7.7); Neutrophils % 63.4 %; Nucleated Red Blood Cells % 0 %; Platelet Count 276 10^3/cmm (130-400); Red Blood Count 4.61 10^6/uL (4.1-5.3); Red Cell Distribution Width 12.8 % (12.1-15.1); White Blood Count 9.8 10^3/uL (4.0-10.0)
[2023-01-10] MEDS: hyDRALAzine 20 mg/mL INJ 1 mL 10 MG IVP (19:23)
[2023-01-10 19:47] LABS: Troponin(5th) Baseline 8 ng/L (0-10)
[2023-01-10 19:49] LABS: Alanine Aminotransferase 25 U/L (0-33); Albumin Level 3.8 g/dL (3.5-5.2); Alkaline Phosphatase 100 U/L (35-105); Anion Gap 14.9 (5-19); Aspartate Amino Transferase 20 U/L (0-32); Blood Urea Nitrogen 12 mg/dL (6-20); Carbon Dioxide 26 mmol/L (22-29); Chloride 102 mmol/L (98-107); Globulin 2.3 g/dL (1.3-4.6); Glomerular Filtration Rate 105.8 mL/min (90-130); Glucose 98 mg/dL (65-115); Lipase 38 U/L (13-60); Osmolality Calculated 288 mOsm/kg (285-295); Potassium 3.9 mmol/L (3.5-5.1); Sodium 139 mmol/L (136-145); Total Bilirubin 0.3 mg/dL (0.15-1.2); Total Protein 6.1 g/dL (6.6-8.7)
[2023-01-10] MEDS: ketorolac 30 mg/mL INJ 15 MG IVP (20:24)
[2023-01-10] MEDS: HYDROcodone-acetaminophen 5-325 mg Tablet 1 TAB PO (20:24)
[2023-01-10 20:26] VITALS: BP 139/97; PULSE 76; RESP 18; O2SAT 97
== END 2023-01-10 20:36 | disposition home or self-care (01) ==
PROVIDERS: Emergency Provider Emergency Medicine; PCP Nurse Practitioner Family
DX: R07.9 Chest pain, unspecified (principal); F17.210 Nicotine dependence, cigarettes, uncomplicated
CPT/HCPCS: 71045; 80053; 83690; 84484; 85025; 93005; 96374; 96375; 99285; J0360; J1885; J2270; J2405

== ENCOUNTER 2023-10-20 13:54 | Emergency (ER) | payer MEDICAID, SELFPAY ==
[2023-10-20 14:36] VITALS: BP 136/86; PULSE 101; RESP 18; TEMP 36.4; O2SAT 99
[2023-10-20 14:53] LABS: Basophils % 0.4 %; Eosinophils # 0.1 10^3/uL (0.0-0.8); Eosinophils % 0.7 %; Hematocrit 53.8 % (36-47); Lymphocytes # 0.5 10^3/uL (0.8-4.8); Lymphocytes % 6.6 %; Mean Corpuscular HGB Conc 33.6 g/dL (30-55); Mean Corpuscular Hemoglobin 31.9 pg (27-33); Mean Corpuscular Volume 94.9 fl (85-98); Mean Platelet Volume 9.9 fL (7.4-10.4); Monocytes # 0.2 10^3/uL (0.2-0.9); Monocytes % 2.9 %; Neutrophils # 7.16 10^3/uL (1.8-7.7); Nucleated Red Blood Cells % 0 %; Platelet Count 248 10^3/cmm (157-399); Red Blood Count 5.67 10^6/uL (3.85-5.65); Red Cell Distribution Width 12.3 % (12.1-15.1); White Blood Count 8.04 10^3/uL (3.29-11.43)
[2023-10-20 15:11] LABS: Alanine Aminotransferase 16 U/L (0-33); Albumin Level 4.5 g/dL (3.5-5.2); Alkaline Phosphatase 106 U/L (35-105); Anion Gap 16.1 (5-19); Aspartate Amino Transferase 17 U/L (0-32); Blood Urea Nitrogen 12 mg/dL (6-20); Calcium 9.7 mg/dL (8.5-10.5); Carbon Dioxide 25 mmol/L (22-29); Chloride 98 mmol/L (98-107); Creatinine Clr Calc Pharmacy 117.3079; Globulin 3.7 g/dL (1.3-4.6); Glomerular Filtration Rate 130.1 mL/min (90-130); Glucose 104 mg/dL (65-115); Lipase 22 U/L (13-60); Osmolality Calculated 280 mOsm/kg (285-295); Potassium 4.1 mmol/L (3.5-5.1); Sodium 135 mmol/L (136-145); Total Bilirubin 0.8 mg/dL (0.15-1.2); Total Protein 8.2 g/dL (6.6-8.7)
--- NOTE | 2023-10-20 17:13 | W.ED.ABDPA2 ---
Documented by User: Peng Javier DO 10/20/23 18:07 HPI - Abdominal Pain General: Chief Complaint: Abdominal Pain Stated Complaint: N/V Time Seen by Provider: 10/20/23 17:12 Source: patient Mode of arrival: ambulatory History of Present Illness: 53-year-old female presents emergency room via EMS complaining of abdominal pain and headache. She ate some food from a grocery store couple of days ago states she has had nausea and vomiting since then. Is a chicken base?. States has not been able to keep any food or fluids down. She denies any hematemesis cough extremities also had some associated diarrhea with this. MD elicited complaint: abdominal pain Onset (ago): day(s) Pain Consistency: intermittent Location: Diffuse Severity: mild Quality: cramping Radiation: none Exacerbating factors: eating Relieving factors: nothing Associated Symptoms: Reports bloating, GI cramping, loose stools, nausea, poor appetite and vomiting; Denies anorexia, belching, change in bowel habits, change in stool character, chills, coffee ground emesis, constipation, diarrhea, dyspepsia, dysuria, excessive flatus, fever(s), heartburn, hematochezia, hematuria, hematemesis, fecal incontinence, melena and syncope Review of Systems Const: Denies: fever(s) or chills Card: Denies: chest pain or syncope Resp: Denies: dyspnea GI: Reports: nausea, vomiting, bloating and GI cramping; Denies: abdominal pain, hematemesis, coffee ground emesis, heartburn, diarrhea, constipation, belching, excessive flatus, fecal incontinence, change in bowel habits, change in stool character, hematochezia or melena : Denies: dysuria, urinary frequency, urinary urgency or hematuria Musc: Denies: neck pain or back pain Skin/Breast: Denies: rash PFSH ED PFSH: Medical History Rectal polyp Gastritis Screen for colon cancer Family History Denies family history of Anesthesia complication Bleeding disorder Social History Smoking and tobacco/nicotine status: current every day tobacco/nicotine user (1/2 pack per day ) Alcohol intake: never Substance/Drug Use: never Physical Exam Const: GENERAL APPEARANCE: cooperative and comfortable ORIENTATION/CONSCIOUSNESS: Yes awake, Yes oriented to person, Yes oriented to place and Yes oriented to time HENMT: COMMON NORMALS: normocephalic, atraumatic and hearing grossly normal bilaterally HEAD & SCALP: normocephalic and atraumatic Resp: COMMON NORMALS: normal respiratory effort, No retractions, No use of accessory muscles and clear to auscultation bilaterally AUSCULTATION: clear to auscultation bilaterally Cardio: COMMON NORMALS: regular rate, regular rhythm and No murmurs present (Cardio) RATE: regular rate RHYTHM: regular rhythm GI: COMMON NORMALS: No hepatosplenomegaly present AUSCULTATION: Yes normoactive bowel sounds PALPATION: Yes Tenderness to palpation present (GI) (Diffuse tenderness), No Guarding due to palpation present (GI) and Yes No hepatosplenomegaly present : COMMON NORMALS: Yes no CVA tenderness BLADDER/KIDNEY EXAM: Yes no CVA tenderness Back/Pelvis: COMMON NORMALS: no CVA tenderness Extremity: COMMON NORMALS: normal to inspection, capillary refill normal, no clubbing, cyanosis or edema, no calf tenderness and no pedal edema Neuro: SENSORIUM/ORIENTATION: Yes oriented to person, Yes oriented to place and Yes oriented to time Skin: COMMON NORMALS: no rashes or lesions noted GENERAL SKIN EXAM: no rashes or lesions noted Course Vital Signs: Vital signs: Vital Signs Temperature 97.6 F 10/20/23 14:36 Pulse Rate 101 H 10/20/23 14:36 Respiratory Rate 18 10/20/23 14:36 Blood Pressure 136/86 10/20/23 14:36 Pulse Oximetry 99 10/20/23 14:36 Oxygen Delivery Me thod Room Air 10/20/23 14:36 MDM - Abdominal Pain Medical Decision Making Care signed out to Dr. Claudio at change of shift. See final notes for diagnosis and disposition. Medical Records I reviewed the patient's medical records. Lab Data I reviewed the patient's lab results. 10/20/23 14:32 10/20/23 14:32 Labs/Radiology: Radiology Impressions Abdomen/Pelvis CT 10/20/23 17:17 IMPRESSION: 1. Questionable mildly distended segments of fluid-filled small bowel in the left lower quadrant with slight haziness of the adjacent mesentery. Possible enteritis. 2. 11 mm indeterminate left adrenal nodule. Limited comparison due to difference in technique on prior study. This may be a stable finding. Consider follow-up adrenal CT/MR. 3. Other nonemergent findings above. Laboratory Results WBC 8.04 10^3/uL (3.29-11.43) 10/20/23 14:32 RBC 5.67 10^6/uL (3.85-5.65) H 10/20/23 14:32 Hgb 18.10 g/dL (11.27-16.99) H 10/20/23 14:32 Hct 53.8 % (36-47) H 10/20/23 14:32 MCV 94.9 fl (85-98) 10/20/23 14:32 MCH 31.9 pg (27-33) 10/20/23 14:32 MCHC 33.6 g/dL (30-55) 10/20/23 14:32 RDW 12.3 % (12.1-15.1) 10/20/23 14:32 Plt Count 248 10^3/cmm (157-399) 10/20/23 14:32 MPV 9.9 fL (7.4-10.4) 10/20/23 14:32 Neut % (Auto) 89.0 % 10/20/23 14:32 Lymph % (Auto) 6.6 % 10/20/23 14:32 [place] % (Auto) 2.9 % 10/20/23 14:32 Eos % (Auto) 0.7 % 10/20/23 14:32 Baso % (Auto) 0.4 % 10/20/23 14:32 Neut # (Auto) 7.16 10^3/uL (1.8-7.7) 10/20/23 14:32 Lymph # (Auto) 0.5 10^3/uL (0.8-4.8) L 10/20/23 14:32 [place] # (Auto) 0.2 10^3/uL (0.2-0.9) 10/20/23 14:32 Eos # (Auto) 0.1 10^3/uL (0.0-0.8) 10/20/23 14:32 Baso # (Auto) 0.0 10^3/uL (0.0-0.1) 10/20/23 14:32 Nucleated RBC % (auto) 0 % 10/20/23 14:32 Nucleated RBCs # 0.0 /100WBC 10/20/23 14:32 Sodium 135 mmol/L (136-145) L 10/20/23 14:32 Potassium 4.1 mmol/L (3.5-5.1) 10/20/23 14:32 Chloride 98 mmol/L (98-107) 10/20/23 14:32 Carbon Dioxide 25 mmol/L (22-29) 10/20/23 14:32 Anion Gap 16.1 (5-19) 10/20/23 14:32 BUN 12 mg/dL (6-20) 10/20/23 14:32 Creatinine 0.5 mg/dL (0.5-0.9) 10/20/23 14:32 GFR Calculation 130.1 mL/min (90-130) H 10/20/23 14:32 Glucose 104 mg/dL (65-115) 10/20/23 14:32 Calculated Osmolality 280 mOsm/kg (285-295) L 10/20/23 14:32 Calcium 9.7 mg/dL (8.5-10.5) 10/20/23 14:32 Total Bilirubin 0.8 mg/dL (0.15-1.2) 10/20/23 14:32 AST 17 U/L (0-32) 10/20/23 14:32 ALT 16 U/L (0-33) 10/20/23 14:32 Alkaline Phosphatase 106 U/L (35-105) H 10/20/23 14:32 Total Protein 8.2 g/dL (6.6-8.7) 10/20/23 14:32 Albumin 4.5 g/dL (3.5-5.2) 10/20/23 14:32 Globulin 3.7 g/dL (1.3-4.6) 10/20/23 14:32 Lipase 22 U/L (13-60) 10/20/23 14:32 XR interpretation done by ED provider, pending radiology final review Discharge Plan Discharge Patient Disposition: Home Clinical Impression: Enteritis, Nausea vomiting and diarrhea, Dehydration, mild Condition: Stable Prescriptions: New promethazine 25 mg tablet 25 mg PO Q6H PRN (Reason: nausea and vomiting) Qty: 14 0RF dicyclomine 20 mg tablet 20 mg PO BID PRN (Reason: abdominal pain) Qty: 14 0RF No Action rosuvastatin [Crestor] 5 mg tablet 5 mg PO DAILY fluoxetine [Prozac] 20 mg capsule 20 mg PO DAILY chlorzoxazone 500 mg tablet 500 mg PO TID hydrocodone-acetaminophen 5-325 mg tablet 1 tab PO Q6H PRN (Reason: pain) 5 Days Qty: 20 0RF levofloxacin 750 mg tablet 750 mg PO DAILY 7 Days Qty: 7 0RF prednisone 20 mg tablet 60 mg PO DAILY 5 Days Qty: 15 0RF ondansetron 8 mg tablet,disintegrating 8 mg PO Q8H PRN (Reason: nausea and vomiting) 5 Days Qty: 15 0RF hydrocodone-acetaminophen 5-325 mg tablet 1 tab PO Q6H PRN (Reason: pain) Qty: 14 0RF Discharge Orders: Discharge ED (Routine); Ordered 10/20/23 Ordered By: Juan José Claudio Referrals: Rena Stallworth FNP [Primary Care Provider] - Discharge Diet: Advance as tolerated and Full LIquid Discharge Activity: Resume usual activity Patient Instructions: Pain Management, Enteritis (ED) Sign Out Sign Out Data: Patient Sign Out occurred on 10/20/23 at 18:23. Patient's care was discussed, and care was transferred from Peng Javier DO to Juan José Claudio MD. Coding Level of Care Code ED Business Analytics Manager for Chg Fwd Documented by User: Juan José Claudio MD 10/20/23 20:04 HPI - Abdominal Pain General: Chief Complaint: Abdominal Pain Stated Complaint: N/V Time Seen by Provider: 10/20/23 17:12 PFSH ED PFSH: Medical History Rectal polyp Gastritis Screen for colon cancer Family History Denies family history of Anesthesia complication Bleeding disorder Social History Smoking and tobacco/nicotine status: current every day tobacco/nicotine user (1/2 pack per day ) Alcohol intake: never Substance/Drug Use: never Course Vital Signs: Vital signs: Vital Signs Temperature 97.6 F 10/20/23 14:36 Pulse Rate 101 H 10/20/23 14:36 Respiratory Rate 18 10/20/23 14:36 Blood Pressure 136/86 10/20/23 14:36 Pulse Oximetry 99 10/20/23 14:36 Oxygen Delivery Me thod Room Air 10/20/23 14:36 MDM - Abdominal Pain Medical Decision Making Care signed out to Dr. Claudio at change of shift. See final notes for diagnosis and disposition. Patient reporting headache to nursing staff. Ordered Toradol 15 IV push for this. Patient received a liter of fluids for her slight dehydration given her heart rate of 101 and probable hemoconcentration on her CBC. No history of polycythemia. Discussed her CT results with her which show a enteritis. Patient also requested medicine for headache, Toradol was ordered and she refused it as it is not strong enough. Patient requesting narcotics for only Demerol or Dilaudid. Patient will get 2 of morphine and discharge. Differential Diagnosis Likely abdominal pain, constipation, gastroenteritis and pancreatitis Lab Data 10/20/23 14:32 10/20/23 14:32 Labs/Radiology: Radiology Impressions Abdomen/Pelvis CT 10/20/23 17:17 IMPRESSION: 1. Questionable mildly distended segments of fluid-filled small bowel in the left lower quadrant with slight haziness of the adjacent mesentery. Possible enteritis. 2. 11 mm indeterminate left adrenal nodule. Limited comparison due to difference in technique on prior study. This may be a stable finding. Consider follow-up adrenal CT/MR. 3. Other nonemergent findings above. Laboratory Results WBC 8.04 10^3/uL (3.29-11.43) 10/20/23 14:32 RBC 5.67 10^6/uL (3.85-5.65) H 10/20/23 14:32 Hgb 18.10 g/dL (11.27-16.99) H 10/20/23 14:32 Hct 53.8 % (36-47) H 10/20/23 14: MCV 94.9 fl (85-98) 10/20/23 14:32 MCH 31.9 pg (27-33) 10/20/23 14: MCHC 33.6 g/dL (30-55) 10/20/23 14:32 RDW 12.3 % (12.1-15.1) 10/20/23 14:32 Plt Count 248 10^3/cmm (157-399) 10/20/23 14:32 MPV 9.9 fL (7.4-10.4) 10/20/23 14:32 Neut % (Auto) 89.0 % 10/20/23 14: Lymph % (Auto) 6.6 % 10/20/23 14:32 [place] % (Auto) 2.9 % 10/20/23 14: Eos % (Auto) 0.7 % 10/20/23 14: Baso % (Auto) 0.4 % 10/20/23 14:32 Neut # (Auto) 7.16 10^3/uL (1.8-7.7) 10/20/23 14:32 Lymph # (Auto) 0.5 10^3/uL (0.8-4.8) L 10/20/23 14:32 [place] # (Auto) 0.2 10^3/uL (0.2-0.9) 10/20/23 14: Eos # (Auto) 0.1 10^3/uL (0.0-0.8) 10/20/23 14:32 Baso # (Auto) 0.0 10^3/uL (0.0-0.1) 10/20/23 14: Nucleated RBC % (auto) 0 % 10/20/23 14: Nucleated RBCs # 0.0 /100WBC 10/20/23 14:32 Sodium 135 mmol/L (136-145) L 10/20/23 14:32 Potassium 4.1 mmol/L (3.5-5.1) 10/20/23 14:32 Chloride 98 mmol/L (98-107) 10/20/23 14:32 Carbon Dioxide 25 mmol/L (22-29) 10/20/23 14:32 Anion Gap 16.1 (5-19) 10/20/23 14:32 BUN 12 mg/dL (6-20) 10/20/23 14:32 Creatinine 0.5 mg/dL (0.5-0.9) 10/20/23 14:32 GFR Calculation 130.1 mL/min (90-130) H 10/20/23 14:32 Glucose 104 mg/dL (65-115) 10/20/23 14:32 Calculated Osmolality 280 mOsm/kg (285-295) L 10/20/23 14:32 Calcium 9.7 mg/dL (8.5-10.5) 10/20/23 14:32 Total Bilirubin 0.8 mg/dL (0.15-1.2) 10/20/23 14:32 AST 17 U/L (0-32) 10/20/23 14:32 ALT 16 U/L (0-33) 10/20/23 14:32 Alkaline Phosphatase 106 U/L (35-105) H 10/20/23 14:32 Total Protein 8.2 g/dL (6.6-8.7) 10/20/23 14:32 Albumin 4.5 g/dL (3.5-5.2) 10/20/23 14:32 Globulin 3.7 g/dL (1.3-4.6) 10/20/23 14:32 Lipase 22 U/L (13-60) 10/20/23 14:32 All radiology interpretation(s) finalized by discharge ED provider radiology interpretation(s): CT abdomen pelvis personally reviewed and some nonspecific stranding around the small bowel and some air-fluid levels possibly an enteritis. Discharge Plan Discharge Patient Disposition: Home Clinical Impression: Enteritis, Nausea vomiting and diarrhea, Dehydration, mild Condition: Stable Prescriptions: New promethazine 25 mg tablet 25 mg PO Q6H PRN (Reason: nausea and vomiting) Qty: 14 0RF dicyclomine 20 mg tablet 20 mg PO BID PRN (Reason: abdominal pain) Qty: 14 0RF No Action rosuvastatin [Crestor] 5 mg tablet 5 mg PO DAILY fluoxetine [Prozac] 20 mg capsule 20 mg PO DAILY chlorzoxazone 500 mg tablet 500 mg PO TID hydrocodone-acetaminophen 5-325 mg tablet 1 tab PO Q6H PRN (Reason: pain) 5 Days Qty: 20 0RF levofloxacin 750 mg tablet 750 mg PO DAILY 7 Days Qty: 7 0RF prednisone 20 mg tablet 60 mg PO DAILY 5 Days Qty: 15 0RF ondansetron 8 mg tablet,disintegrating 8 mg PO Q8H PRN (Reason: nausea and vomiting) 5 Days Qty: 15 0RF hydrocodone-acetaminophen 5-325 mg tablet 1 tab PO Q6H PRN (Reason: pain) Qty: 14 0RF Discharge Orders: Discharge ED (Routine); Ordered 10/20/23 Ordered By: Juan José Claudio Referrals: Rena Stallworth FNP [Primary Care Provider] - Discharge Diet: Advance as tolerated and Full LIquid Discharge Activity: Resume usual activity Patient Instructions: Pain Management, Enteritis (ED) Sign Out Sign Out Data: Patient Sign Out occurred on 10/20/23 at 18:23. Patient's care was discussed, and care was transferred from Peng Javier DO to Juan José Claudio MD. Coding Level of Care Code ED Business Analytics Manager for Mayra Morgan
--- NOTE | 2023-10-20 17:17 | CTR_ITS ---
PROCEDURE INFORMATION: Exam: CT Abdomen And Pelvis Without Contrast Exam date and time: 10/20/2023 6:11 PM Age: 53 years old Clinical indication: Nausea and vomiting and other: Diarhea; Prior surgery; Surgery date: 6+ months; Surgery type: X2 csetion/hyst; Patient HX: Patient says she thinks she has food poisoning; Additional info: Abdominal pain TECHNIQUE: Imaging protocol: Computed tomography of the abdomen and pelvis without contrast. Radiation optimization: All CT scans at this facility use at least one of these dose optimization techniques: automated exposure control; mA and/or kV adjustment per patient size (includes targeted exams where dose is matched to clinical indication); or iterative reconstruction. COMPARISON: CT abdomen pelvis w con* [id number] 07/22/2020 12:50 PM RADIATION DOSE METRICS: Total DLP (mGy-cm): 478 FINDINGS: Lungs: Mild atelectasis and/or scarring in the lingula. The lung bases are otherwise clear. Heart: Heart size is within normal limits. There is no pericardial effusion or pericardial thickening. Liver: The liver is normal. No hepatic masses are identified. Gallbladder and bile ducts: The gallbladder is normal. There is no ductal dilatation. Pancreas: The pancreas is normal. Spleen: The spleen is normal. Adrenal glands: 11 mm indeterminate left adrenal nodule. The adrenal glands are otherwise normal. Kidneys and ureters: No renal calcifications are identified. There is no hydronephrosis. Stomach and bowel: Questionable mildly distended segments of fluid-filled small bowel in the left lower quadrant with slight haziness of the adjacent mesentery. No evidence of large or small bowel obstruction. No bowel wall thickening. Appendix: A normal appendix is identified. Intraperitoneal space: No pneumoperitoneum. No other evidence of inflammatory change. Critical. Vasculature: The aorta is normal in course and caliber. No significant atherosclerotic calcifications are present. Lymph nodes: There are no enlarged retroperitoneal or mesenteric lymph nodes. Urinary bladder: The bladder is unremarkable. Reproductive: The uterus is absent. Bones/joints: No acute osseous abnormalities are seen. Soft tissues: Tiny periumbilical hernia containing only fat. The soft tissues are otherwise within normal limits. CT/CT abdomen pelvis wo con [id number] IMPRESSION: 1. Questionable mildly distended segments of fluid-filled small bowel in the left lower quadrant with slight haziness of the adjacent mesentery. Possible enteritis. 2. 11 mm indeterminate left adrenal nodule. Limited comparison due to difference in technique on prior study. This may be a stable finding. Consider follow-up adrenal CT/MR. 3. Other nonemergent findings above.
[2023-10-20] MEDS: lidocaine 2% viscous 15 ML, aluminum-mag hydrox-simethicon 30 ML, sucralfate oral liq 1 GM PO (18:57)
[2023-10-20] MEDS: sodium chloride 0.9% 1,000 ML 999 ML IV (18:57)
[2023-10-20] MEDS: ondansetron 2 mg/ML SDV 2 mL 4 MG IVP (18:58)
[2023-10-20 19:10] VITALS: BP 134/97; O2SAT 99
[2023-10-20 19:40] VITALS: BP 140/85; O2SAT 97
[2023-10-20] MEDS: morphine 4 mg/mL SDV 1 mL 2 MG IVP (19:57)
[2023-10-20 20:00] VITALS: BP 140/106; PULSE 97; O2SAT 100
--- NOTE | 2023-10-20 20:22 | PC.NURSE ---
Tessa took over care at 1900 from machelle.
[2023-10-20 20:23] VITALS: BP 140/106; PULSE 92; RESP 16; O2SAT 99
== END 2023-10-20 20:26 | disposition home or self-care (01) ==
PROVIDERS: Emergency Medicine; Emergency Provider Emergency Medicine; PCP Nurse Practitioner Family
DX: K52.9 Noninfective gastroenteritis and colitis, unspecified (principal); E86.0 Dehydration; F17.210 Nicotine dependence, cigarettes, uncomplicated
CPT/HCPCS: 36415; 74176; 80053; 83690; 85025; 96361; 96374; 96375; 99285; J1885; J2270; J2405; J7030

== ENCOUNTER 2023-11-17 12:00 | Outpatient (CLI) | payer MEDICAID, SELFPAY | END 2023-11-17 12:01 | disposition home or self-care (01) | LOC: SLEEP 11-18 12:39 | PROVIDERS: PCP Nurse Practitioner Family; Visit Provider Nurse Practitioner Family | DX: G47.33 Obstructive sleep apnea (adult) (pediatric) (principal) | CPT/HCPCS: G0399 ==

== ENCOUNTER 2024-02-16 12:34 | Outpatient (CLI) | payer MEDICAID, SELFPAY ==
--- NOTE | 2024-02-16 12:40 | CT_ITS ---
WS: [id number] CT adrenals with and without contrast. HISTORY: ADRENAL CORTEX NODULE, LEFT Noncontrast 2 mm imaging is performed through the abdomen with attention to the adrenal glands. Addit ional 1 minute and 15 minute delayed images are then performed through the adrenal glands. CONTRAST: Omnipaque 350; 95 mL IV. DLP: 743.[address] scans at [facility] use at least one of these dose optimization techniques: automated e xposure control; mA and/or kV adjustment per patient size (includes targeted exams where dose is matc hed to clinical indication); or iterative reconstruction. COMPARISON: 10/20/2023 Lower thorax: Unremarkable. Liver: Normal. No intrahepatic dilatation. Gallbladder: Normal. Pancreas: Normal. Spleen: Normal. ADRENAL GLANDS. RIGHT: Normal. No mass or enlargement. LEFT: Very small 11 mm nodule in the LEFT adrenal gland. Absolute and relative washout values are per formed. Absolute washout value greater than 100%. Relative washout value 70%. These findings are cons istent with a benign adenoma. Right kidney: Normal. Left kidney: Normal. Aorta: Normal. GI tract: Normal. No adenopathy or free fluid. Abdominal wall: No hernia. Visualized osseous structures: Unremarkable. CT/CT abdomen wo/w con [id number] IMPRESSION: 1. LEFT adrenal 11 mm nodule consistent with a benign adenoma. 2. Otherwise negative.
[2024-02-16] MEDS: iohexol 350 mg/mL 500 mL Btl (per mL) IV (13:07)
== END 2024-02-16 12:35 | disposition home or self-care (01) ==
LOC: RAD 12:35
PROVIDERS: PCP Nurse Practitioner Family; Visit Provider Nurse Practitioner Family
DX: D35.02 Benign neoplasm of left adrenal gland (principal)
CPT/HCPCS: 74170

== ENCOUNTER 2024-12-17 14:02 | Outpatient (CLI) | payer MEDICAID, SELFPAY ==
--- NOTE | 2024-12-17 14:08 | CT_ITS ---
WS: [id number] CT HEAD TECHNIQUE: Noncontrast CT of the head obtained from the skullbase to the vertex. CLINICAL INFORMATION: HEADACHE COMPARISON: CT 01/10/2022 DLP: 1060.[address] scans at [facility] use at least one of these dose optimization techniques: automated exposure control; mA and/or kV adjustment per patient size (includes targeted exams where dose is matched to clinical indication); or iterative reconstruction. FINDINGS: No evidence of intracranial hemorrhage or mass effect. Ventricular system and basal cisterns are patent. No extra-axial fluid collections. No evidence of mass or mass effect. Normal clemens-white differentiation. Paranasal sinuses and mastoid air cells are well aerated. .Normal visualized soft tissues. CT/CT head wo con* [id number] IMPRESSION: 1. No evidence of intracranial hemorrhage or mass effect. 2. No acute intracranial findings.
== END 2024-12-17 14:03 | disposition home or self-care (01) ==
LOC: RAD 14:04
PROVIDERS: PCP Nurse Practitioner Family; Visit Provider Nurse Practitioner Family
DX: R51.9 Headache, unspecified (principal)
CPT/HCPCS: 70450